=== PATIENT | male | born 1940 | race Caucasian/White ===

== ENCOUNTER 2023-11-23 10:02 | Emergency (ER) | payer OTHER, MEDICARE, SELFPAY ==
[2023-11-23 10:04] VITALS: BP 139/66
[2023-11-23 10:56] VITALS: BP 145/55
[2023-11-23 11:00] VITALS: BP 114/95
[2023-11-23 11:00] LABS: % Basophils 0.8 % (0-2); % Eosinophils 1.5 % (0-6); % Immature Granulocytes 0.6 % (0-0.5); % Monocytes 7.2 % (1.7-9.3); % Neutrophils 70.9 % (42.2-75.2); Absolute Eosinophils 0.1 10^3/uL (0-0.7); Absolute Lymphocytes 0.9 10^3/uL (1.2-3.4); Absolute Monocytes 0.3 10^3/uL (0.1-0.6); Absolute Neutrophils 3.4 10^3/uL (1.4-6.5); Hematocrit 23.1 % (39.0-52.0); Hemoglobin 7.5 g/dL (13.0-18.0); Mean Corp Hgb Conc. 32.5 g/dL (33.0-37.0); Mean Corpuscular Hgb 27.8 pg (27.0-31.0); Mean Corpuscular Volume 85.6 fL (80.0-94.0); Mean Platelet Volume 11.5 fL (7.4-10.4); Nucleated Red Blood Cells % 0 % (-); Platelet Count 143 10^3/uL (130-400); Red Cell Dist. Width 15.9 % (11.5-14.5); White Blood Cell Count 4.7 10^3/uL (4.8-10.8)
[2023-11-23 11:12] LABS: ALT (SGPT) 15 U/L (0-50); AST (SGOT) 24 U/L (17-59); Albumin 3.1 g/dl (3.5-5.0); Alkaline Phosphatase 75 U/L (38-126); Blood Urea Nitrogen 35 mg/dl (9-20); Calcium 8.1 mg/dl (8.4-10.2); Carbon Dioxide 18 mmol/L (22-30); Chloride 113 mmol/L (98-107); Glucose 109 mg/dl (70-99); Potassium 4.4 mmol/L (3.5-5.1); Sodium 137 mmol/L (135-145); Total Bilirubin 0.3 mg/dl (0.2-1.3); Total Protein 5.7 g/dl (6.3-8.2); eGFR 36.43
[2023-11-23 11:18] LABS: INR 2.35
--- NOTE | 2023-11-23 11:26 | ED.GENMED ---
History of Present Illness
<Ary Santos MD, Resident - Last Filed: 11/23/23 12:30>
General
Chief Complaint: Abnormal Lab Value
Time Seen by Provider: 11/23/23 10:50
History of Present Illness
History of Present Illness:
83-year-old male with history of hypertension, GI bleed, anemia, CKD 3B presented to the ED with dizziness and black stool. He reports that he was hospitalized at [facility] twice for similar complaint. He was discharged this past Wednesday with a
hemoglobin of 8.4. Colonoscopy and endoscopy are performed revealing large diverticula in the transverse colon. He was given 4 units of blood. He was also given erythropoietin and was seen by the small piece cutter stating that his low hemoglobin is
because of his chronic kidney disease. Patient has had 2 recent iron infusions and is currently taking Protonix 40 mg. His last rectal bleeding was yesterday. He denies any abdominal pain, any headaches, blurry vision, neck pain, chest pain,
shortness of breath, fever, chills.
Phy Exam
<Ary Santos MD, Resident - Last Filed: 11/23/23 12:30>
General Physical Exam
General Presentation: well appearing and no apparent distress
Eye Exam
Eye Exam: PERRL
Cardiovascular Exam
Cardiovascular Exam: regular rate/rhythm, no gallop and no murmur
Pulmonary Exam
Pulmonary Exam: lungs clear, no crackles and no wheezing
Gastrointestinal Exam
Gastrointestinal Exam: normal bowel sounds, non tender, soft, non distended and other (Negative stool guaiac test)
Neurological Exam
Neurological Exam: alert, oriented x3 and no motor deficits
Course
<Ary Santos MD, Resident - Last Filed: 11/23/23 12:30>
Orders/Labs/Results
Orders:
Orders
11/23/23 10:49
Type+Screen Urgent
Complete Blood Count/With Diff Urgent
Comprehensive Metabolic Panel Urgent
PTT Urgent
Prothrombin Time Urgent
Abnormal Lab Results
11/23/23
10:49
WBC 4.7 L 10^3/uL
(4.8-10.8)
RBC 2.70 L 10^6/uL
(4.70-6.10)
Hgb 7.5 L g/dL
(13.0-18.0)
Hct 23.1 L %
(39.0-52.0)
MCHC 32.5 L g/dL
(33.0-37.0)
RDW 15.9 H %
(11.5-14.5)
MPV 11.5 H fL
(7.4-10.4)
Absolute Lymphs (auto) 0.9 L 10^3/uL
(1.2-3.4)
Immature Gran % 0.6 H %
(0-0.5)
Lymphocytes % 19.0 L %
(20.5-51.1)
PT 26.0 H Sec
(11.4-14.6)
APTT 43.0 H Sec
(23.4-35.0)
Chloride 113 H mmol/L
(98-107)
Carbon Dioxide 18 L mmol/L
(22-30)
BUN 35 H mg/dl
(9-20)
Creatinine 1.8 H mg/dL
(0.7-1.3)
Glucose 109 H mg/dl
(70-99)
Calcium 8.1 L mg/dl
(8.4-10.2)
Total Protein 5.7 L g/dl
(6.3-8.2)
Albumin 3.1 L g/dl
(3.5-5.0)
11/23/23 10:49
11/23/23 10:49
Vital Signs
Initial and Last Documented VS:
Initial Vital Signs
Temp Pulse Resp BP Pulse Ox
98.5 F 87 18 139/66 99
11/23/23 10:04 11/23/23 10:04 11/23/23 10:04 11/23/23 10:04 11/23/23 10:04
Last Documented Vital Signs
Temp Pulse Resp BP Pulse Ox
98.5 F 72 17 114/95 99
11/23/23 10:04 11/23/23 11:45 11/23/23 11:45 11/23/23 11:00 11/23/23 11:15
<Bossman Lares MD - Last Filed: 11/23/23 13:17>
Orders/Labs/Results
Orders:
Orders
11/23/23 10:49
Type+Screen Urgent
Complete Blood Count/With Diff Urgent
Comprehensive Metabolic Panel Urgent
PTT Urgent
Prothrombin Time Urgent
Abnormal Lab Results
11/23/23
10:49
WBC 4.7 L 10^3/uL
(4.8-10.8)
RBC 2.70 L 10^6/uL
(4.70-6.10)
Hgb 7.5 L g/dL
(13.0-18.0)
Hct 23.1 L %
(39.0-52.0)
MCHC 32.5 L g/dL
(33.0-37.0)
RDW 15.9 H %
(11.5-14.5)
MPV 11.5 H fL
(7.4-10.4)
Absolute Lymphs (auto) 0.9 L 10^3/uL
(1.2-3.4)
Immature Gran % 0.6 H %
(0-0.5)
Lymphocytes % 19.0 L %
(20.5-51.1)
PT 26.0 H Sec
(11.4-14.6)
APTT 43.0 H Sec
(23.4-35.0)
Chloride 113 H mmol/L
(98-107)
Carbon Dioxide 18 L mmol/L
(22-30)
BUN 35 H mg/dl
(9-20)
Creatinine 1.8 H mg/dL
(0.7-1.3)
Glucose 109 H mg/dl
(70-99)
Calcium 8.1 L mg/dl
(8.4-10.2)
Total Protein 5.7 L g/dl
(6.3-8.2)
Albumin 3.1 L g/dl
(3.5-5.0)
11/23/23 10:49
11/23/23 10:49
Vital Signs
Initial and Last Documented VS:
Initial Vital Signs
Temp Pulse Resp BP Pulse Ox
98.5 F 87 18 139/66 99
11/23/23 10:04 11/23/23 10:04 11/23/23 10:04 11/23/23 10:04 11/23/23 10:04
Last Documented Vital Signs
Temp Pulse Resp BP Pulse Ox
98.5 F 72 17 114/95 99
11/23/23 10:04 11/23/23 11:45 11/23/23 11:45 11/23/23 11:00 11/23/23 11:15
<Ary Santos MD, Resident - Last Filed: 11/23/23 12:30>
*Critical Care Note
Total Time (30-74mins, 75-104mins- exclusive of procedures): Not Applicable
<Ary Santos MD, Resident - Last Filed: 11/23/23 12:30>
Update Note
Update Note:
83-year-old male presents with dizziness and melena to the ED. Recent colonoscopy revealed large diverticula in the transverse colon. The patient is currently taking 40 mg Protonix and is not feeling dizzy currently. His hemoglobin now is 7.5
which is not a significant drop from 8.4. Stool guaiac test was negative, patient is not actively bleeding, hemodynamically stable. After consulting with the industrial organizational psychologist, it was suggested that the patient can be discharged as there is no
active bleeding and his hemoglobin level has not dropped significantly with stable vitals. He should follow-up with a industrial organizational psychologist outpatient for repeat H&H. Should also follow-up with his family doctor. I will give a prescription for H&H
to be taken in like 3 days. Will refer patient to Gastroenterology also to a primary care physician for a follow up.
ED Attending Note
<Ary Santos MD, Resident - Last Filed: 11/23/23 12:30>
-
Portions of this chart may have been created with voice recognition software.� Occasional wrong word or��sound alike� substitutions may have occurred due to the inherent limitations of voice recognition software.
<Bossman Lares MD - Last Filed: 11/23/23 13:17>
ED Attending Note
Patient seen and examined by attending physician: Yes
ED Attending Note:
Patient discharged from [facility] 3 days ago after being admitted and evaluated for dark stools with anemia, requiring transfusion, returns to ED secondary to recurrent weakness and dizziness along with 'dark stool'. During
hospitalization, patient reports having received normal endoscopy and colonoscopy, along with multiple blood transfusion as well as erythropoietin treatment. Denies fever or chills. Denies nausea or vomiting. Denies abdominal pain. Denies
trauma. Denies headache.
H&H noted. Patient's hemoglobin at time of discharge was 8.4. Otherwise, patient is alert, awake, and hemodynamically stable, without any acute distress.
Reviewed patient's paperwork from [facility]. Discussed with on-call GI physician, - does not recommend blood transfusion nor any further inpatient workup at this time, as stool is heme-negative. Recommends continued
outpatient treatment along with GI follow-up as an outpatient.
Patient and family expressed understanding and agree with treatment plan. Given script for repeat H/H this week, along with recommendation to return to ED with worsening symptoms.
Discharge Plan
Departure
Patient Disposition: Home (Routine Discharge)
Date of Disposition: 11/23/23
Time of Disposition: 12:07
Patient with high blood pressure during this ER visit?: No
Discharge Problem:
Melena
Prescriptions:
New
pantoprazole 40 mg tablet,delayed release (DR/EC)
40 mg PO DAILY 90 Days Qty: 90 0RF
Referrals:
Ary Santos MD, Resident [Emergency Midlevel Provider] - Follow up in 1 week
Liam Chen MD [Active] - Follow up in 10 days
Interventions
Interventions:
*Risk Screen - Suicide Last Done: 11/23/23 10:04
*General Assessment Last Done: 11/23/23 10:04
*Neglect/Abuse Screening Last Done: 11/23/23 10:04
ED- Fall Risk Assessment Last Done: 11/23/23 12:30
*ED COVID-19 Vaccine History Last Done: 11/23/23 12:30
*Nursing Disposition Last Done: 11/23/23 12:30
Discharge Date and Time
Discharge Date/Time: 11/23/23 12:32
Print Language: SETSWANA
== END 2023-11-23 12:32 | disposition home or self-care (01) ==
LOC: EMR 10:02
PROVIDERS: EMERGENCY PHYSICIAN Emergency Medicine
DX: K92.1 Melena (principal); I12.9 Hypertensive chronic kidney disease with stage 1 through stage 4 chronic kidney disease, or unspecified chronic kidney disease; N18.32 Chronic kidney disease, stage 3b; D64.9 Anemia, unspecified
CPT/HCPCS: 99282; 80053; 85025; 85610; 85730; 86850; 86900; 86901

== ENCOUNTER 2023-12-01 16:09 | Inpatient (IN) | payer OTHER, MEDICARE, SELFPAY ==
[2023-12-01] VITALS (17 sets, daily range): BP systolic 113–178; BP diastolic 56–123; BMI 27.4; BMI 26.5
--- NOTE | 2023-12-01 09:46 | ED.GENMED ---
History of Present Illness
<Luba Ferrara QUANTITY SURVEYOR - Last Filed: 12/01/23 16:06>
General
Chief Complaint: Rectal Bleeding
Source: patient
Exam Limitations: none
Time Seen by Provider: 12/01/23 09:45
Nursing documentation reviewed up to this point in time: agreed with
History of Present Illness
History of Present Illness:
83-year-old male with history of HTN, GI bleed. Here for dark stool and reported [facility] HGB of 6.9 in out pt. labs from 2 days ago.
Pt admitted to [facility] 1 month ago for GI Bleed, received 4 U PRBC's. Discharged.
Admitted again to [facility] 2 weeks ago, received 3 units of PRBC's and Erythropoietin, seen by nephroologist and told low Hgb due to CKD. Pt reports he had endoscopy, colonoscopy and CT scan, all showing nothing to explain GI bleed. He states
swallow pill study mentioned but has not had this done.
Seen here on 11/22 for black stool and dizziness: Hgb 7.5 that day
Had out pt repeat labs 2 days ago at [facility] which he pulled up on his phone and decided to come here instead of going back to [facility]
Feels 'a little' lightheaded and short of breath. Denies CP, denies abdominal pain. Denies n/v/d/c.
Past History
<Luba Ferrara, QUANTITY SURVEYOR - Last Filed: 12/01/23 16:06>
Past History
ED Past Medical History: HTN and Other (GI bleed)
Social History
Tobacco: Non-smoker
Alcohol: None
Personal:
Living: with family
Review of Systems
<Luba Ferrara, QUANTITY SURVEYOR - Last Filed: 12/01/23 16:06>
Review of Systems
Allergies reviewed?: Yes
All Other Systems: ROS reviewed and negative except as documented in HPI and ROS
Constitutional: Reports fatigue; Denies fever
Respiratory: Reports trouble breathing (mild SOB)
Cardiac: Denies chest pain
ABD/GI: Reports other (dark stools); Denies abdominal pain, nausea, vomiting, diarrhea, constipated or anorexia
: Reports no symptoms
Musculoskeletal: Reports no symptoms
Skin: Reports no symptoms
Neurological: Reports no symptoms
Phy Exam
<Luba Ferrara, QUANTITY SURVEYOR - Last Filed: 12/01/23 16:06>
Physical Exam
Physical Exam:
GENERAL: No acute distress. A&Ox3.
CONSTITUTIONAL: Afebrile.
EYES: clear, conjunctivae normal
ENMT: moist mucus membranes, Pharynx nl
RESPIRATORY: Regular respirations, nonlabored, lungs clear.
CARDIOVASCULAR: Regular rate and rhythm, no murmurs, no rubs.
GI: Soft, nontender, normal BS
MUSCULOSKELETAL: Moves with ease. Well perfused.
SKIN: Warm, dry, pink
PSYCH: Normal mood and affect. Well kept, interactive and appropriate
NEUROLOGIC: Awake, alert and oriented. No focal neurological deficits
Course
<Luba Ferrara, QUANTITY SURVEYOR - Last Filed: 12/01/23 16:06>
Orders/Labs/Results
Orders:
Orders
12/01/23 10:15
* Blood Bank Products Urgent
Blood Bank Products: *Packed RBC Leuko(PRBC's)
Quantity: 2
Transfuse Today: Yes
Reason: Anemia
Other reason: GI bleed
IV Insert/Care/Rem.- Treatment PRN
12/01/23 10:29
Type And Crossmatch Urgent
Complete Blood Count/With Diff Urgent
Comprehensive Metabolic Panel Urgent
Ferritin Urgent
Comment: ADD ON
Folate Urgent
Comment: ADD ON
Iron Urgent
Comment: ADD ON
PTT Urgent
Prothrombin Time Urgent
Total Iron Binding Urgent
Comment: ADD ON
Vitamin B12 Urgent
Comment: ADD ON
12/01/23 13:32
Consult Gastroenterology [GASTROINTESTINAL CONSULT] Urgent
Consulting Provider: Justine Herrera
Was physician already notified: Yes
Reason for consult: GI bleed, anemia
12/01/23 13:52
Add On- LAB Routine
Tests Added?: serum iron, iron saturation, ferritin, b12, folate, tibc
12/01/23 Dinner
Low Residue
At Your Request: Full Participation
12/01/23 15:51
Admit/Transfer Patient As Directed
Co-Sign Provider:
Level of Care: Inpatient admission
Assign to:: Medical/Surgical
Physician / Group: Hospitalist
Diagnosis: Rectal bleeding
Reason for Hospitalization: Blood transfusion, GI work up.
Expected length of stay greater than two midnights?: Yes
ELOS- Estimated Length of Stay in days: 4
I certify the patient meets the requirements for IP care: Yes
12/01/23 15:52
PRN Pain Medication Management As Directed
May give lesser potent ordered pain med per pt: Yes
preference::
Protocol:: Medication orders for pain may be administered in a
manner that supports deferring to patient preference
when the pt is:
-Requesting an ordered lesser potent pain medication.
Least to most potent pain medications are defined as:
acetaminophen < NSAID < tramadol < opioids (morphine,
oxycodone, hydromorphone).
- Requesting a lesser dose of the same medication IF
ORDERED.
- Requesting a less intrusive route of administration
if both routes are prescribed by the provider (PO <
IV).
12/01/23 15:54
Code Status As Directed
Resuscitation Status: Full Code
12/01/23 16:00
0.9% Sodium Chloride [Nss (Preservative Free)] 10 ml IV BID
Pantoprazole [Protonix IV] 40 mg IV BID
12/02/23 Breakfast
Clear Liquid
At Your Request: Full Participation
Clear Liquids: No red liquids
Abnormal Lab Results
12/01/23
10:29
RBC 2.41 L 10^6/uL
(4.70-6.10)
Hgb 6.2 L* g/dL
(13.0-18.0)
Hct 20.1 L* %
(39.0-52.0)
MCH 25.7 L pg
(27.0-31.0)
MCHC 30.8 L g/dL
(33.0-37.0)
RDW 15.8 H %
(11.5-14.5)
MPV 11.0 H fL
(7.4-10.4)
Absolute Lymphs (auto) 1.0 L 10^3/uL
(1.2-3.4)
Immature Gran % 0.6 H %
(0-0.5)
Lymphocytes % 18.8 L %
(20.5-51.1)
PT 17.6 H Sec
(11.4-14.6)
Chloride 115 H mmol/L
(98-107)
Carbon Dioxide 19 L mmol/L
(22-30)
BUN 34 H mg/dl
(9-20)
Creatinine 1.6 H mg/dL
(0.7-1.3)
Glucose 111 H mg/dl
(70-99)
Calcium 8.0 L mg/dl
(8.4-10.2)
Iron 29 L ug/dl
(49-181)
% Saturation 10 L %
(20-50)
Total Protein 5.4 L g/dl
(6.3-8.2)
Albumin 2.8 L g/dl
(3.5-5.0)
Crossmatch IS Only See Detail
12/01/23 10:29
12/01/23 10:29
Vital Signs
Initial and Last Documented VS:
Initial Vital Signs
Temp Pulse Resp BP Pulse Ox
98.1 F 84 18 162/123 100
12/01/23 08:51 12/01/23 08:51 12/01/23 08:51 12/01/23 08:51 12/01/23 08:51
Last Documented Vital Signs
Temp Pulse Resp BP Pulse Ox
98.7 F 76 19 160/65 100
12/01/23 14:55 12/01/23 15:45 12/01/23 15:45 12/01/23 15:30 12/01/23 15:15
Arcgis Developer consulted with Physician
Arcgis Developer consulted with physician?: Yes
Name of Physician Consulted: Dr. Cabrera
<Dena Cabrera MD - Last Filed: 12/01/23 13:32>
Orders/Labs/Results
Orders:
Orders
12/01/23 10:15
* Blood Bank Products Urgent
Blood Bank Products: *Packed RBC Leuko(PRBC's)
Quantity: 2
Transfuse Today: Yes
Reason: Anemia
Other reason: GI bleed
IV Insert/Care/Rem.- Treatment PRN
12/01/23 10:29
Type And Crossmatch Urgent
Complete Blood Count/With Diff Urgent
Comprehensive Metabolic Panel Urgent
Ferritin Urgent
Comment: ADD ON
Folate Urgent
Comment: ADD ON
Iron Urgent
Comment: ADD ON
PTT Urgent
Prothrombin Time Urgent
Total Iron Binding Urgent
Comment: ADD ON
Vitamin B12 Urgent
Comment: ADD ON
12/01/23 13:32
Consult Gastroenterology [GASTROINTESTINAL CONSULT] Urgent
Consulting Provider: Justine Herrera
Was physician already notified: Yes
Reason for consult: GI bleed, anemia
12/01/23 13:52
Add On- LAB Routine
Tests Added?: serum iron, iron saturation, ferritin, b12, folate, tibc
12/01/23 Dinner
Low Residue
At Your Request: Full Participation
12/01/23 15:51
Admit/Transfer Patient As Directed
Co-Sign Provider:
Level of Care: Inpatient admission
Assign to:: Medical/Surgical
Physician / Group: Hospitalist
Diagnosis: Rectal bleeding
Reason for Hospitalization: Blood transfusion, GI work up.
Expected length of stay greater than two midnights?: Yes
ELOS- Estimated Length of Stay in days: 4
I certify the patient meets the requirements for IP care: Yes
12/01/23 15:52
PRN Pain Medication Management As Directed
May give lesser potent ordered pain med per pt: Yes
preference::
Protocol:: Medication orders for pain may be administered in a
manner that supports deferring to patient preference
when the pt is:
-Requesting an ordered lesser potent pain medication.
Least to most potent pain medications are defined as:
acetaminophen < NSAID < tramadol < opioids (morphine,
oxycodone, hydromorphone).
- Requesting a lesser dose of the same medication IF
ORDERED.
- Requesting a less intrusive route of administration
if both routes are prescribed by the provider (PO <
IV).
12/01/23 15:54
Code Status As Directed
Resuscitation Status: Full Code
12/01/23 16:00
0.9% Sodium Chloride [Nss (Preservative Free)] 10 ml IV BID
Pantoprazole [Protonix IV] 40 mg IV BID
12/02/23 Breakfast
Clear Liquid
At Your Request: Full Participation
Clear Liquids: No red liquids
Abnormal Lab Results
12/01/23
10:29
RBC 2.41 L 10^6/uL
(4.70-6.10)
Hgb 6.2 L* g/dL
(13.0-18.0)
Hct 20.1 L* %
(39.0-52.0)
MCH 25.7 L pg
(27.0-31.0)
MCHC 30.8 L g/dL
(33.0-37.0)
RDW 15.8 H %
(11.5-14.5)
MPV 11.0 H fL
(7.4-10.4)
Absolute Lymphs (auto) 1.0 L 10^3/uL
(1.2-3.4)
Immature Gran % 0.6 H %
(0-0.5)
Lymphocytes % 18.8 L %
(20.5-51.1)
PT 17.6 H Sec
(11.4-14.6)
Chloride 115 H mmol/L
(98-107)
Carbon Dioxide 19 L mmol/L
(22-30)
BUN 34 H mg/dl
(9-20)
Creatinine 1.6 H mg/dL
(0.7-1.3)
Glucose 111 H mg/dl
(70-99)
Calcium 8.0 L mg/dl
(8.4-10.2)
Iron 29 L ug/dl
(49-181)
% Saturation 10 L %
(20-50)
Total Protein 5.4 L g/dl
(6.3-8.2)
Albumin 2.8 L g/dl
(3.5-5.0)
Crossmatch IS Only See Detail
12/01/23 10:29
12/01/23 10:29
Vital Signs
Initial and Last Documented VS:
Initial Vital Signs
Temp Pulse Resp BP Pulse Ox
98.1 F 84 18 162/123 100
12/01/23 08:51 12/01/23 08:51 12/01/23 08:51 12/01/23 08:51 12/01/23 08:51
Last Documented Vital Signs
Temp Pulse Resp BP Pulse Ox
98.7 F 76 19 160/65 100
12/01/23 14:55 12/01/23 15:45 12/01/23 15:45 12/01/23 15:30 12/01/23 15:15
<Luba Ferrara, QUANTITY SURVEYOR - Last Filed: 12/01/23 16:06>
MDM/Problems Addressed
Differential Diagnosis Includes:
Acute GI bleed, iron deficient anemia, CKD with anemia
MDM/Problems Addressed:
83-year-old male with history of HTN, GI bleed. Here for dark stool and reported [facility] HGB of 6.9 in out pt. labs from 2 days ago.
Pt admitted to [facility] 1 month ago for GI Bleed, received 4 U PRBC's. Discharged.
Admitted again to [facility] 2 weeks ago, received 3 units of PRBC's and Erythropoietin, seen by nephroologist and told low Hgb due to CKD. Pt reports he had endoscopy, colonoscopy and CT scan, all showing nothing to explain GI bleed. He states
swallow pill study mentioned but has not had this done.
Seen here on 11/22 for black stool and dizziness: Hgb 7.5 that day, but stool reportedly heme neg. At that time we spoke to GI and plan was to f/u as out pt. and have Hgb rechecked
Had out pt repeat labs 2 days ago at [facility] which he pulled up on his phone and decided to come here instead of going back to [facility]
Feels 'a little' lightheaded and short of breath. Denies CP, denies abdominal pain. Denies n/v/d/c.
Stool now heme positive.
VSS, NAD
Blood consent signed and scanned into chart
CBC: Hemoglobin 6.2
CMP: noted
Case discussed with Dr. Cabrera who examined pt.
1:[address] GI [address]. Herrera
[facility] obtained and colonoscopy, endoscopy, CT results reviewed by Dr. Herrera who states technically not a complete colonoscopy so ask pt if he's willing to have it repeated, he states yes.
Hospitalist notified of admission.
<Luba Ferrara NP - Last Filed: 12/01/23 16:06>
*Critical Care Note
Total Time (30-74mins, 75-104mins- exclusive of procedures): Not Applicable
ED Attending Note
<Luba Ferrara NP - Last Filed: 12/01/23 16:06>
-
Portions of this chart may have been created with voice recognition software.� Occasional wrong word or��sound alike� substitutions may have occurred due to the inherent limitations of voice recognition software.
<Dena Cabrera MD - Last Filed: 12/01/23 13:32>
ED Attending Note
Patient seen and examined by attending physician: Yes
I performed the substantive portion of visit, reviewed & personally made and approve the management plan that is documented in note by myself or ANDRES.: Yes
ED Attending Note:
83 yr old male hx of black heme + stool and anemia, w/u reportedly unremkarable recently at [facility],presents with worsening anemia assoc with dizziness/lightheadedness and mild sob. No cp. No f/c/v/d.
Pt awake alert pleasant on exam,abd osft and nontender. Reports from obtained, QUANTITY SURVEYOR d/w [facility]...plan is transfuse, admit for further monitoring and I suspect further investigation. Pt stable.
Discharge Plan
Departure
Patient Disposition: Admit
Date of Disposition: 12/01/23
Time of Disposition: 13:28
Admit to: Med/Surg
Presentation/result/management discussed w/ accepting MD/DO: Hospitalist
Condition: Fair
Discharge Problem:
GI bleed, Anemia
Prescriptions:
No Action
amlodipine [Norvasc] 2.5 mg Tablet
2.5 mg PO DAILY
PreserVision AREDS 2,148 mcg-113 mg-45 mg-17.4mg Tablet
1 tab PO BID
pantoprazole 40 mg tablet,delayed release (DR/EC)
40 mg PO DAILY
Referrals:
Curly Cornelius DO [Family Provider] -
Interventions
Interventions:
*Risk Screen - Suicide Last Done: 12/01/23 08:51
*General Assessment Last Done: 12/01/23 08:51
*Neglect/Abuse Screening Last Done: 12/01/23 08:51
*ED COVID-19 Vaccine History Last Done: 12/01/23 08:51
UQ-Uywalj-Qmrkkyrcrs Assessment Last Done: 12/01/23 10:34
ED- Cardiac Assessment Last Done: 12/01/23 10:34
ED- Pulmonary Assessment Last Done: 12/01/23 10:34
Discharge Date and Time
Print Language: KOSOVAN
[2023-12-01 10:52] LABS: ALT (SGPT) 16 U/L (0-50); APTT 34.5 Sec (23.4-35.0); AST (SGOT) 23 U/L (17-59); Albumin 2.8 g/dl (3.5-5.0); Alkaline Phosphatase 67 U/L (38-126); Blood Urea Nitrogen 34 mg/dl (9-20); Carbon Dioxide 19 mmol/L (22-30); Chloride 115 mmol/L (98-107); Estimated Creatinine Clearance 35 ml/min; Glucose 111 mg/dl (70-99); INR 1.43; PT 17.6 Sec (11.4-14.6); Potassium 4.7 mmol/L (3.5-5.1); Sodium 140 mmol/L (135-145); Total Bilirubin 0.2 mg/dl (0.2-1.3); Total Protein 5.4 g/dl (6.3-8.2); eGFR 41.96
[2023-12-01 11:00] LABS: % Basophils 0.4 % (0-2); % Eosinophils 0.8 % (0-6); % Immature Granulocytes 0.6 % (0-0.5); % Lymphocytes 18.8 % (20.5-51.1); % Monocytes 4.4 % (1.7-9.3); Absolute Monocytes 0.2 10^3/uL (0.1-0.6); Absolute Neutrophils 3.8 10^3/uL (1.4-6.5); Hematocrit 20.1 % (39.0-52.0); Hemoglobin 6.2 g/dL (13.0-18.0); Mean Corp Hgb Conc. 30.8 g/dL (33.0-37.0); Mean Corpuscular Hgb 25.7 pg (27.0-31.0); Mean Corpuscular Volume 83.4 fL (80.0-94.0); Nucleated Red Blood Cells % 0 % (-); Platelet Count 189 10^3/uL (130-400); Red Blood Cell Count 2.41 10^6/uL (4.70-6.10); Red Cell Dist. Width 15.8 % (11.5-14.5)
--- NOTE | 2023-12-01 13:34 | CON.GI ---
Addendum entered and electronically signed by Justine Herrera DO 12/01/23 16:51:
I saw and examined the patient.
The CLIENT ENGAGEMENT SPECIALIST or PA's note was reviewed and I agree with the note.
Comment:
Jose J is an 83-year-old male with past medical history significant for gastric bypass with duodenal switch in 2009, iron deficiency anemia, chronic kidney disease who presents to the ER with complaints of melena. Of note patient underwent a
recent workupto at [facility] for anemia and GI bleeding, EGD with small hiatal hernia, mild esophagitis and gastritis but otherwise unremarkable. Colonoscopy with decreased finger tone on rectal exam, blood products and some solid stool found
throughout the colon limiting visualization, evidence of diverticulosis in the transverse colon, additionally, due to tortuous colon, unable to advance scope past transverse colon. Recommendations were made to consider repeat colonoscopy or attempt
with single balloon.
Hgb 6.2 on arrival, with 2 units of PRBC ordered. Brown, heme positive stool on rectal exam. He is hemodynamically stable-- hypertensive on exam.
Recommendations:
-2 peripheral gauge IVs
-active T&C
-receiving 2 units PRBC
-plan for colonoscopy on Wednesday
-clear liquids tomorrow and prep-- patient agreeable to plan
-if patient experiences brisk GI bleeding, please obtain stat CTA or bleeding scan
Original Note:
Consultation
-
Date/Time Consultation Requested: 12/01/23
Date/Time Consultation Performed: 12/01/23 @ 14:00
Requesting Provider: Luba Ferrara
Performing Provider: NNAMDI Barrett; Dr. Justine Herrera
Reason for Consultation: anemia, heme + stool
Medical History
Chief Complaint / HPI
Chief Complaint: melena
History of Present Illness:
The patient is a pleasant 83-year-old male with a past medical history significant for hypertension, gastric bypass with duodenal switch in 2009, anemia, chronic kidney disease, who presented to the ER with complaints of melena, which we are being
asked to evaluate for. The patient reports he started having black stools about 1 and half months ago. He was admitted to [facility] where he received blood transfusions. He notes after that point in time he was discharged but then
returned 2 weeks ago again with recurrent anemia. He reports having a CT scan which was unrevealing. I did read the report which did not show any active signs of bleeding, but did show a right adrenal lesion that recommended follow-up with MRI and
findings consistent with prior gastric bypass. He notes that he did have an EGD and colonoscopy done at that time but no source of bleeding was identified. He notes that they had difficulty performing his colonoscopy and it was advised he have a
repeat colonoscopy and possible capsule study outpatient. He had been evaluated in the emergency room last week on 11/22 and was found to have a hemoglobin of 7.5 at that time. Upon rectal exam he was heme-negative and him and advised to follow-up
with GI outpatient. The patient reports that for the past 1-1/2 weeks he noticed that his stool had been more brown in color. He has been taking iron supplementation as previously directed. He also has been taking pantoprazole once daily as
directed. He denies any upper GI complaints such as nausea, vomiting, heartburn, dysphagia, or odynophagia. He denies any abdominal pain. He has no unintentional weight loss or loss of appetite. He denies any cramping with bowel movements. He
is moving his bowels 1-2 times daily, although notes they can be looser at times. He otherwise denies any fevers, chills, chest pain, shortness of breath, lightheadedness, dizziness, or syncope. He denies any prior history of anemia. He reports
having colonoscopies done every 2 years up until 83 as his had colon cancer and was required to get them done every 2 years therefore they would get them done together. He denies any bright red blood per rectum. He denies any tarry stool or
clots. He denies ever having colon polyps in the past. He had been on 81 mg of aspirin but had stopped this after being hospitalized at [facility]. He denies any family history of colon cancer. Routine labs on admission showed a hemoglobin of
6.2, hematocrit 20.1, RBC 2.4, WBC 5.0, platelets 189,000, MCV 83.4, INR 1.43, BUN 34, creatinine 1.6, with normal LFTs. Iron studies, B12, and folate pending. 2 units of blood were ordered and transfusion was started. He is hemodynamically
stable, actually with hypertension otherwise asymptomatic in regards to his anemia. Stool was heme positive on rectal exam per ER records. He is being admitted for further evaluation by GI.
Past Medical History
Past Medical History: HTN and Other (CKD)
Past Surgical History: Orthopedic (left arm surgery) and Other (Gastric bypass w/ duodenal switch)
Social History
Tobacco: Former Smoker (quit 40 years ago)
Alcohol: Occasional
Drug: None
Personal:
Family History
Family History: Reviewed & Not Pertinent
Allergies / Home Medications
Allergy/AdvReac Type Severity Reaction Status Date / Time
No Known Allergies Allergy Verified 12/01/23 08:51
�Medication �Instructions �Recorded
pantoprazole 40 mg tablet,delayed 40 mg PO DAILY 90 days #90 tabs 11/23/23
release
amlodipine 2.5 mg tablet (Norvasc) 2.5 mg PO DAILY 12/01/23
vitamins A,C,T-zmvq-djwzue 2,148 1 tab PO BID 12/01/23
mcg-113 mg-45 mg-17.4 mg tablet
(PreserVision AREDS)
Review of Systems
-
History Source: Patient
Constitutional: Reports No Symptoms
EENT: Reports No Symptoms
Respiratory: Reports No Symptoms
Cardiac: Reports No Symptoms
Abdomen/GI: Reports Black Stools
: Reports No Symptoms
Musculoskeletal: Reports No Symptoms
Skin: Reports No Symptoms
Neurological: Reports No Symptoms
Endocrine: Reports No Symptoms
Hematologic/Lymphatic: Reports No Symptoms
Vital Signs
Temp Pulse Resp BP Pulse Ox
98.4 F 98 22 192/113 100
12/01/23 12:18 12/01/23 12:24 12/01/23 12:24 12/01/23 12:24 12/01/23 12:24
Physical Exam
Exam
General: Comfortable and Other (elderly appearing male in NAD)
HEENT: Normocephalic, Anicteric and Atraumatic
Respiratory: Clear
Cardiac: S1/S2 and Regular Rhythm
Breast: N/A
GI: Soft, Non Tender, Non Distended, Normal Bowel Sounds and Other (+midline abdominal hernia, easily reducible and nontender)
Rectal: Hem Positive (per ER documentation)
Musculoskeletal: No Edema
Skin: Warm and Dry
Neuro: Awake, Alert and Oriented
Psych: Calm
Results
WBC 5.0 10^3/uL (4.8-10.8) 12/01/23 10:29
Hgb 6.2 g/dL (13.0-18.0) L* 12/01/23 10:29
Hct 20.1 % (39.0-52.0) L* 12/01/23 10:29
MCV 83.4 fL (80.0-94.0) 12/01/23 10:29
Plt Count 189 10^3/uL (130-400) 12/01/23 10:29
Absolute Neuts (auto) 3.8 10^3/uL (1.4-6.5) 12/01/23 10:29
PT 17.6 Sec (11.4-14.6) H 12/01/23 10:29
INR 1.43 12/01/23 10:29
APTT 34.5 Sec (23.4-35.0) 12/01/23 10:29
Sodium 140 mmol/L (135-145) 12/01/23 10:29
Potassium 4.7 mmol/L (3.5-5.1) 12/01/23 10:29
Chloride 115 mmol/L (98-107) H 12/01/23 10:29
Carbon Dioxide 19 mmol/L (22-30) L 12/01/23 10:29
BUN 34 mg/dl (9-20) H 12/01/23 10:29
Creatinine 1.6 mg/dL (0.7-1.3) H 12/01/23 10:29
Calcium 8.0 mg/dl (8.4-10.2) L 12/01/23 10:29
Total Bilirubin 0.2 mg/dl (0.2-1.3) 12/01/23 10:
AST 23 U/L (17-59) 12/01/23 10:
ALT 16 U/L (0-50) 12/01/23 10:
Alkaline Phosphatase 67 U/L (38-126) 12/01/23 10:29
Diagnostic Image Results:
11/18/23 CT A/P w/ IV and oral contrast: No acute findings in the abdomen or pelvis. A right adrenal lesion measuring 2.5 x 3 cm was seen. Prostatomegaly. Gallbladder sludge.
Prior GI Procedures:
EGD: 11/15/2023 ([facility]): Small hiatal hernia, mild esophagitis and gastritis. Stomach biopsies showing minimal chronic inflammation, negative for H. pylori
Colonoscopy: 11/16/2023 ([facility]): Decreased sphincter tone on rectal exam. Upon entry blood products and some solid stool found throughout the colon along with clots limiting visualization. The colon was dilated upon entry. Trouble
advancing due to tortuosity despite counterpressure with pediatric scope. Switch to adult scope but only able to reach likely the proximal transverse colon. Diverticulosis with large mouth diverticula in the transverse colon. No active bleeding
seen.
Assessment / Plan
-
The patient is a pleasant 83-year-old male with a past medical history significant for hypertension, gastric bypass with duodenal switch in 2009, anemia, chronic kidney disease, who presented to the ER with complaints of melena, found to have
recurrent severe anemia with a hemoglobin of 6.2. He had prior extensive workup at [facility] including CT scan, EGD, and colonoscopy. There were no definite sources of bleeding although on colonoscopy there was evidence of blood and clot but
the procedure was unable to be completed given the tortuosity of the colon and difficulty advancing to the cecum (per [facility] records). He had been having brown stool for the past week and a half then with recurrent melena as of this morning.
He denies any other symptoms. He had been on pantoprazole as directed taking this daily. He denies any NSAID use or use of blood thinners as he had stopped 81 mg of aspirin at his prior hospitalization. He has no prior history of GI bleed. He is
having 1-2 bowel movements a day with no gross bleeding. He denies any bright red blood per rectum. He is hypertensive but otherwise hemodynamically stable. 2 units of PRBC infusing.
Problem list:
-Melena
-Severe normocytic anemia
-Likely CKD
-History of duodenal switch in 2009
-Hypertensive urgency
-Mild acidosis
Recommendations:
-Etiology of recurrent anemia unclear, but suspected to be possible small bowel versus upper large bowel source (AVM v diverticular v other) based on prior workup. Possibly also component of chronic kidney disease contributing to some degree of his
anemia although with melena will need to rule out GI source.
-Will start with repeat colonoscopy given incomplete scope at [facility] which the patient is agreeable to. Plan for colonoscopy on Wednesday. Will discuss with Dr. Amaya given the difficulty of his prior colonoscopy.
-Continue to trend H&H and transfuse to keep hemoglobin greater than 7
-Monitor for profuse bleeding, if significant episode of bleeding to consider bleeding scan (limited on CT given his renal function)
-Large-bore IV
-Okay for low residue diet today, then clear liquid diet after midnight with prep the evening of 12/01 and plan for scope 12/02
-To consider capsule study outpatient pending colonoscopy. The patient also has a granddaughter who works at [employer] in the GI department if he will need a DBE he will be in contact with his granddaughter to talk to someone at [employer].
-Continue on IV PPI, will increase to twice daily for now with melena
-Further management pending above
-
-
Thank you for consultation and allowing me to participate in the patient's care. Please call the radiation monitor GI physician during the after hours with any questions or concerns.
[2023-12-01 15:33] LABS: Iron 29 ug/dl (49-181)
[2023-12-01 15:43] LABS: Percent Saturation 10 % (20-50); Total Iron Binding Capacity 266 ug/dl (261-462)
--- NOTE | 2023-12-01 16:04 | HPS.HSE ---
Addendum entered and electronically signed by Lillian Peres MD 12/01/23 17:56:
I personally performed a history and physical exam of the patient and discussed management with the resident. I reviewed the resident's note and agree with the documented findings and plan of care HPI/CC.
GENERAL: well developed, well nourished,male in no apparent distress
HEENT: NC/AT--no O2 requirements
HEART: regular rate and rhythm, +S1, +S2
LUNGS : clear to auscultation bilaterally
ABDOM: soft, nontender, nondistended, + bowel sounds, abdominal wall hernia
EXT: no cyanosis, clubbing, or edema
NEUROLOGIC: grossly intact
Rectal bleeding--with black stool and painless, could be upper GI source (PUD, DUD) vs lower (diverticulosis, AVMs--although they could present more melanotic rather than black)--pt has had prior admissions at an outside hospital x 2 for same and
both times received pRBC transfusions--EGD/colonoscopy done were inconclusive based on the reports reviewed)--ADMIT--transfuse pRBC and consult GI--serial H&H� Large-bore IV--if significant bleeding happens, consider nuclear med bleeding scan--CT
angiography would be risky due to creat of 1.6--would recommend repeat EGD and colonoscopy and if truly neg then outpt capsule study next step--Continue IV PPI BID
Acute to subacute blood loss anemia--pt hgb 6.2 (likely chronic in nature with presumed CKD, stage 3?), compensated to some extent--iron studies show SHELBIE, pt took oral iron as outpt for 1 week then stopped--B12 and folate are adequate--after workup,
consider restarting oral iron therapy
Unknown cardiac issue--Patient states sees a cheese packer Dr. Johnson Maria every 6 months for an unknown cardiac issue--Plans to contact Dr. Maria by Dr. Limon to see what his underlying issue is--Patient stated a carotid ultrasound and an
unspecified scan of his heart was done at [facility] and stated they both came back normal.
Elevated creatinine--likely CKD stage 3--but no true baseline labs-1.6 on admission. 1.8 on 11/22--Avoid nephrotoxic drugs
Essential HTN--Continue amlodipine 2.5 mg
Adrenal Lesion--Abdominal/pelvic enhanced done at [facility] on November 17 noted 2.5 x 3 cm right adrenal lesion which does not meet CT criteria for simple adenoma--Follow up as outpatient
DVT proph--Sequential compression device
Code status--Full code
Original Note:
Family Physician
-
Family Physician: Curly Cornelius
Chief Complaint
-
Rectal bleeding
History of Present Illness
83-year-old male presents to the ED with rectal bleeding. About a month and a half ago patient was admitted to [facility] for rectal bleeding. Patient saw black stools and went into the ER. He did not have any abdominal pain, nausea,
vomiting, fever, diarrhea, or recent constipation. They gave him 4 units of blood and sent him home. 2 weeks later he went back to [facility] for rectal bleeding again. They gave him 2 units of blood and admitted him for further
workup. They did an endoscopy, colonoscopy and abdominal CT all of which came back inconclusive for cause of GI bleed. Colonoscopy was not prepped properly and report noted that on entry blood products and some solid stool found throughout the
colon along with clots limiting visualization. They were also unable to reach proximal transverse colon. They gave him 1 dose of erythropoietin while there. 1 week ago patient came into [place] ER for black stools. ED did a Hemoccult blood
test which came back negative and sent him home with recommendations to follow-up with GI outpatient. On Wednesday patient got his routine lab work from PCP back and his hemoglobin level was 6.9. After seeing the value he felt dizzy. Today he again
had black stools and came to the ED. On admission patient had hemoglobin levels of 6.2. 2 units of packed red blood cells were given. Patient has no complaints besides black stools. He has no diarrhea, constipation, bright red blood in the
stool, abdominal tenderness, abdominal pain, nausea, vomiting or fever. He does take an iron supplement. He did take baby aspirin 81 mg but has stopped after hospitalization at [facility]. He does not take any NSAIDs. He had bariatric surgery
14 years ago. Patient is being admitted for blood transfusions and further GI workup.
Medical History
Past Medical History
Past Medical History: Reports HTN
Additional Past Medical History:
Unknown cardiac issue
Past Surgical History: Reports Other (Bariatric surgery, metal andie placement for broken left upper arm)
Social History
Tobacco: Former Smoker (1 pack per day from ages [age])
Alcohol: Occasional
Drug: None
Personal:
Living: With Family
Employment: Employed
Family History
Family History: Other (Father at age 36 of unknown metastatic cancer, mother of unknown kidney disease)
Allergies / Home Medications
Allergies reflects when Allergies were last updated in [facility].
Home Medications with original date entered in [facility]
Allergy/Medication List:
Allergies
Allergy/AdvReac Type Severity Reaction Status Date / Time
No Known Allergies Allergy Verified 12/01/23 08:51
Home Medications
amlodipine 2.5 mg tablet (Norvasc) 2.5 mg PO DAILY Blood Pressure 12/01/23
pantoprazole 40 mg tablet,delayed release 40 mg PO DAILY Gastrointestinal Issue 12/01/23
vitamins A,C,R-goib-ofokkh 2,148 mcg-113 mg-45 mg-17.4 mg tablet (PreserVision AREDS) 1 tab PO BID Supplement 12/01/23
Review of Systems
-
History Source: Patient
EENT: Reports No Symptoms
Respiratory: Reports No Symptoms
Cardiac: Reports No Symptoms
Abdomen/GI: Reports Black Stools; Denies Abdominal Pain, Nausea, Vomiting, Diarrhea or Constipated
: Reports No Symptoms
Musculoskeletal: Reports No Symptoms
Skin: Reports No Symptoms
Neurological: Reports No Symptoms
Psych: Reports No Symptoms
Physical Exam
Vital Signs
Vital Signs
Temp Pulse Resp BP Pulse Ox
98.7 F 76 19 160/65 100
12/01/23 14:55 12/01/23 15:45 12/01/23 15:45 12/01/23 15:30 12/01/23 15:15
Physical Exam
General: Well Developed, Well Nourished, No Apparent Distress and Comfortable
HEENT: NormoCephalic
Respiratory: Clear
Cardiac: S1/S2 and Regular Rhythm
GI: Soft, Non Tender, Non Distended, Normal Bowel Sounds and Other (abdominal hernia); No No Hernias
Musculoskeletal: No Edema
Neuro: AO x 3
Laboratory Results
-
12/01/23 10:29
12/01/23 10:29
Laboratory Results
PT 17.6 Sec (11.4-14.6) H 12/01/23 10:29
INR 1.43 12/01/23 10:29
APTT 34.5 Sec (23.4-35.0) 12/01/23 10:29
Total Bilirubin 0.2 mg/dl (0.2-1.3) 12/01/23 10:29
AST 23 U/L (17-59) 12/01/23 10:29
ALT 16 U/L (0-50) 12/01/23 10:29
Alkaline Phosphatase 67 U/L (38-126) 12/01/23 10:29
Impression/Plan
-
IMPRESSION:
83-year-old male with history of hypertension presenting to ED with rectal bleeding.
PLAN:
#Rectal bleeding
-Prior admission to [facility] for rectal bleeding.
-Black stools, hemoglobin 6.2 on admission.
-GI consulted
-Continue to trend H&H and transfuse to keep hemoglobin greater than 7
� Large-bore IV
� Monitor for profuse bleeding, if significant episode of bleeding consider bleeding scan (limited on CT given his renal function)
-Colonoscopy planned for 8�2 as colonoscopy at [facility] was not done properly
-Low residue diet today, then clear liquid diet after midnight with prep the evening of 8�1 and plan for scope 8�2
�Consider capsule study outpatient pending colonoscopy. Patient has a granddaughter who works at [employer] in the GI department and be willing to help him get seen postprocedure.
-Continue IV PPI
#Acute to subacute blood loss anemia
-Hemoglobin 6.2 on admission. MCV 83.4. Likely secondary to rectal bleeding.
�Iron 29 L, TIBC 266, percent saturation 10, ferritin 10.6 L. Vitamin B-12 greater than 1000, folate 12.4
-Patient on iron supplementation
-Monitor H&H
#Unknown cardiac issue
-Patient states sees a cheese packer Dr. Johnson Maria every 6 months for an unknown cardiac issue.
-Plans to contact Dr. Maria to see what his underlying issue is
-Patient stated a carotid ultrasound and an unspecified scan of his heart was done at [facility] and stated they both came back normal.
-Patient's METS score greater than 4, ambulatory and appears to be in good health.
-Denies any chest pain, shortness of breath, palpitations.
#Elevated creatinine
-1.6 on admission. 1.8 on 11/22.
-No prior baseline to compare
-Monitor creatinine
-Avoid nephrotoxic drugs
#Essential HTN
-Continue amlodipine 2.5 mg
#Adrenal Lesion
-Abdominal/pelvic enhanced done at [facility] on November 17 noted 2.5 x 3 cm right adrenal lesion which does not meet CT criteria for simple adenoma.
-Follow up in outpatient
#DVT
-Sequential compression device
#Code status
-Full code
[2023-12-01 16:08] LABS: Ferritin 10.6 ng/ml (17.9-464.0)
[2023-12-01 16:40] LABS: Folate 12.4 ng/ml (2.76-20); Vitamin B12 > 1000 pg/ml (239-931)
[2023-12-01] MEDS: NSS (PRESERVATIVE FREE) 10 ML IV ×2 (18:08→21:37)
[2023-12-01] MEDS: PROTONIX IV 40 MG IV ×2 (18:08→21:38)
[2023-12-01] MEDS: OCUVITE SOFTGEL 1 CAP PO (19:37)
[2023-12-01 21:24] LABS: Hematocrit 23.3 % (39.0-52.0); Hemoglobin 7.8 g/dL (13.0-18.0)
--- NOTE | 2023-12-01 22:37 | PTCARENOTE ---
Rec'd pt from ED, 2nd unit of blood completed. Pt call [facility] placed within reach, pt instructed to ring for assistance. verbalized understanding. will cont to monitor.
--- NOTE | 2023-12-02 06:26 | W.PN.HOSP.TC ---
Addendum entered and electronically signed by Lillian Peres MD 12/02/23 20:08:
I saw and evaluated the patient independently. I reviewed the resident�s note and agree with findings and plan as documented by Dr. Limon.
GENERAL: well developed, well nourished,male in no apparent distress
HEENT: NC/AT--no O2 requirements
HEART: regular rate and rhythm, +S1, +S2
LUNGS : clear to auscultation bilaterally
ABDOM: soft, nontender, nondistended, + bowel sounds, abdominal wall hernia
EXT: no cyanosis, clubbing, or edema
NEUROLOGIC: grossly intact
Rectal bleeding--with black stool and painless, could be upper GI source (PUD, DUD) vs lower (diverticulosis, AVMs--although they could present more melanotic rather than black), concern for possible right sided malignancy--pt has had prior
admissions at an outside hospital x 2 for same and both times received pRBC transfusions--EGD/colonoscopy done were inconclusive based on the reports reviewed)---s/p 2 units pRBC with improvement to 9.3 and apprec GI--serial H&H� 2 Large-bore
IV--if significant bleeding happens, consider nuclear med bleeding scan--CT angiography would be risky due to creat of 1.6-- EGD and colonoscopy for Wednesday and if truly neg then outpt capsule study next step--Continue IV PPI BID
Acute to subacute blood loss anemia--pt hgb 6.2 (likely chronic in nature with presumed CKD, stage 3?), compensated to some extent--iron studies show SHELBIE, pt took oral iron as outpt for 1 week then stopped--B12 and folate are adequate--after workup,
consider restarting oral iron therapy--s/p 2 units pRBC with HGB 9.3
Unknown cardiac issue--Patient states sees a office administration instructor Dr. Johnson Maria every 6 months for an unknown cardiac issue--Plans to contact Dr. Maria by Dr. Limon to see what his underlying issue is--Patient stated a carotid ultrasound and an
unspecified scan of his heart was done at [facility] and stated they both came back normal.
Elevated creatinine--likely CKD stage 3--but no true baseline labs-1.6 on admission, 1.4 today-- 1.8 on 11/22--Avoid nephrotoxic drugs
Essential HTN--Continue amlodipine 2.5 mg
Adrenal Lesion--Abdominal/pelvic enhanced done at [facility] on November 17 noted 2.5 x 3 cm right adrenal lesion which does not meet CT criteria for simple adenoma--Follow up as outpatient
DVT proph--Sequential compression device
Code status--Full code
Original Note:
Today's Communication/Plan
-
Patient started on GI protocol for colonoscopy. Colonoscopy planned tomorrow.
Assessment / Plan
Assessment / Plan
PLAN:
#Rectal bleeding
-Prior admission to [facility] for rectal bleeding.
-Black stools, hemoglobin 6.2 on admission. After 2 units 11/30 went up to 7.8. Today its 9.3.
-GI consulted
-Continue to trend H&H and transfuse to keep hemoglobin greater than 7
� Large-bore IV
� Monitor for profuse bleeding, if significant episode of bleeding consider bleeding scan (limited on CT given his renal function)
-Colonoscopy planned for 8�2 as colonoscopy at [facility] was not done properly
-Low residue diet today, then clear liquid diet after midnight with prep the evening of 8�1 and plan for scope 8�2
�Consider capsule study outpatient pending colonoscopy. Patient has a granddaughter who works at [employer] in the GI department and be willing to help him get seen postprocedure.
-Continue IV PPI
-GI is prepping patient for colonoscopy tomorrow.
#Acute to subacute blood loss anemia
-Hemoglobin 6.2 on admission. MCV 83.4. Likely secondary to rectal bleeding.
-7.8 after 2 units PRBC. Today 9.3.
�Iron 29 L, TIBC 266, percent saturation 10, ferritin 10.6 L. Vitamin B-12 greater than 1000, folate 12.4
-Patient on iron supplementation
-Monitor H&H
#Unknown cardiac issue
-Patient states sees a office administration instructor Dr. Johnson Maria every 6 months for an unknown cardiac issue.
-Patient stated a carotid ultrasound and an unspecified scan of his heart was done at [facility] and stated they both came back normal.
-Denies any chest pain, shortness of breath, palpitations.
-EKG shows sinus rhythm with sinus arrhythmia with 1st degree AV block with premature ventricular complexes.
-Pt plans to continue to see office administration instructor.
#Elevated creatinine
-1.6 on admission. 1.8 on 11/22.
-12/01 cr 1.4.
-No prior baseline to compare
-Monitor creatinine
-Avoid nephrotoxic drugs
#Essential HTN
-Continue amlodipine 2.5 mg
#Adrenal Lesion
-Abdominal/pelvic enhanced done at [facility] on November 17 noted 2.5 x 3 cm right adrenal lesion which does not meet CT criteria for simple adenoma.
-Follow up in outpatient
#DVT
-Sequential compression device
#Code status
-Full code
Anticipated Discharge: > 48 hours
Subjective/Interval History
-
Date of Service: December 02, 2023
Patient appears well and is in no acute distress. Talkative and friendly.
Objective Data
-
Labs:
Laboratory Results
12/01/23 12/02/23
21:14 06:00
WBC Pending
Hgb 7.8 L D Pending
Hct 23.3 L Pending
Plt Count Pending
PT Pending
INR Pending
APTT Pending
Sodium Pending
Potassium Pending
Chloride Pending
Carbon Dioxide Pending
BUN Pending
Creatinine Pending
Glucose Pending
Calcium Pending
Total Bilirubin Pending
AST Pending
ALT Pending
Alkaline Phosphatase Pending
Vital Signs:
Vital Signs
Temp Pulse Resp BP Pulse Ox
97.4 F 67 18 149/70 98
12/01/23 23:00 12/01/23 23:00 12/01/23 23:00 12/01/23 23:00 12/02/23 00:40
I&O
11/30/23 12/01/23 12/02/23
06:59 06:59 06:59
Intake Total 610 / 610
Balance 610 / 610
Review of Systems
-
History Source: Patient
EENT: Reports No Symptoms Reported
Respiratory: Reports No Symptoms
Cardiac: Reports No Symptoms
Abdomen/GI: Denies Abdominal Pain, Nausea, Vomiting, Diarrhea, Constipated or Pain
Genitourinary: Reports No Symptoms
Neuro: Reports No Symptoms
Physical Exam
-
General: Well Developed and Well Nourished
HEENT: Normocephalic
Respiratory: Clear to Auscultation; Negative Wheezes or Rales
Cardiac: Regular Rhythm and S1/S2
GI: Soft, Nontender, Nondistended and Other (abdominal hernia)
Neuro: AO x 3
Psych: Calm
[2023-12-02 07:35] VITALS: BP 134/73
[2023-12-02 08:14] LABS: INR 1.79; PT 20.9 Sec (11.4-14.6)
[2023-12-02 08:15] LABS: APTT 54.1 Sec (23.4-35.0)
[2023-12-02 08:34] LABS: ALT (SGPT) 18 U/L (0-50); AST (SGOT) 28 U/L (17-59); Albumin 2.9 g/dl (3.5-5.0); Alkaline Phosphatase 68 U/L (38-126); Blood Urea Nitrogen 26 mg/dl (9-20); Calcium 8.2 mg/dl (8.4-10.2); Carbon Dioxide 16 mmol/L (22-30); Chloride 117 mmol/L (98-107); Estimated Creatinine Clearance 40 ml/min; Glucose 120 mg/dl (70-99); Potassium 4.6 mmol/L (3.5-5.1); Sodium 140 mmol/L (135-145); Total Bilirubin 0.5 mg/dl (0.2-1.3); Total Protein 5.8 g/dl (6.3-8.2); eGFR 49.25
[2023-12-02] MEDS: NSS (PRESERVATIVE FREE) 10 ML IV ×2 (09:54→19:37)
[2023-12-02] MEDS: NORVASC 2.5 MG PO (09:54)
[2023-12-02] MEDS: OCUVITE SOFTGEL 1 CAP PO ×2 (09:54→19:36)
[2023-12-02] MEDS: PROTONIX IV 40 MG IV ×2 (09:54→19:36)
[2023-12-02 10:04] LABS: Hematocrit 28.5 % (39.0-52.0); Hemoglobin 9.3 g/dL (13.0-18.0); Mean Corp Hgb Conc. 32.6 g/dL (33.0-37.0); Mean Corpuscular Hgb 27.4 pg (27.0-31.0); Mean Corpuscular Volume 84.1 fL (80.0-94.0); Mean Platelet Volume 10.3 fL (7.4-10.4); Platelet Count 168 10^3/uL (130-400); Red Blood Cell Count 3.39 10^6/uL (4.70-6.10); Red Cell Dist. Width 15.4 % (11.5-14.5); White Blood Cell Count 5.6 10^3/uL (4.8-10.8)
--- NOTE | 2023-12-02 12:53 | W.PN.GI.CBS2 ---
Today's Communication / Plan
-
prep today, NPO PMN for Colonoscopy with Dr. Amaya tomorrow
Assessment / Plan
-
Jose J is an 83-year-old male with past medical history significant for gastric bypass with duodenal switch in 2009, iron deficiency anemia, chronic kidney disease who presents to the ER with complaints of melena and symptomatic anemic, found to
have a hemoglobin of 6.2. He has a history of GI bleeding, with recent inpatient evaluation at [facility] s/p EGD and incomplete colonoscopy, no source identified, discharged home with recommendations to follow-up at [facility].
--11/18/23 CT A/P w/ IV and oral contrast: No acute findings in the abdomen or pelvis. A right adrenal lesion measuring 2.5 x 3 cm was seen. Prostatomegaly. Gallbladder sludge.
--Prior GI Procedures:
--EGD: 11/15/2023 ([facility]): Small hiatal hernia, mild esophagitis and gastritis. Stomach biopsies showing minimal chronic inflammation, negative for H. pylori
--Colonoscopy: 11/16/2023 ([facility]): Decreased sphincter tone on rectal exam. Upon entry blood products and some solid stool found throughout the colon along with clots limiting visualization. The colon was dilated upon entry. Trouble
advancing due to tortuosity despite counterpressure with pediatric scope. Switch to adult scope but only able to reach likely the proximal transverse colon. Diverticulosis with large mouth diverticula in the transverse colon. No active bleeding
seen.
Recommendations:
-2 peripheral gauge IVs
-active T&C
-Hgb 6.2 --> 9.3 s/p 2 units of PRBC (11/30); no bleeding since arrival
-suspect distal small bowel vs. colonic source of bleeding given blood products found throughout colon on exam at [facility], however, unable to traverse passed the transverse colon or evaluate the small bowel
-Dr. Amaya will reattempt colonoscopy tomorrow
-Clear liquid diet, colonoscopy prep
-NPO PMN
-no blood thinners, stopped his baby ASA when his bleeding returned, prior to arrival
Subjective
Subjective
Date of Service: December 02, 2023
Patient seen in follow-up this morning, no bleeding overnight. Hemoglobin 6.2 --> 9.3 following 2 units PRBC on arrival. He remains hemodynamically stable.
Objective
Data Reviewed
Laboratory Data:
Laboratory Results
12/02/23 09:40
12/02/23 07:43
Laboratory Results
PT 20.9 Sec (11.4-14.6) H 12/02/23 07:43
INR 1.79 12/02/23 07:43
APTT 54.1 Sec (23.4-35.0) H 12/02/23 07:43
Total Bilirubin 0.5 mg/dl (0.2-1.3) 12/02/23 07:43
AST 28 U/L (17-59) 12/02/23 07:43
ALT 18 U/L (0-50) 12/02/23 07:43
Alkaline Phosphatase 68 U/L (38-126) 12/02/23 07:43
Vital Signs and I&O:
Vital Signs
Temp Pulse Resp BP Pulse Ox
98 F 73 18 134/73 98
12/02/23 07:35 12/02/23 09:54 12/02/23 07:35 12/02/23 09:54 12/02/23 07:35
I&O
12/01/23 12/02/23 12/03/23
06:59 06:59 06:59
Intake Total 610 / 610
Balance 610 / 610
Physical Exam
Physical Exam
GENERAL: In no acute distress, appears comfortable
ABDOMEN: +BS; soft, non-tender and non-distended; no rebound or guarding; +large reducible ventral hernia
[2023-12-02] MEDS: DULCOLAX 10 MG PO (13:52)
[2023-12-02] MEDS: GAVILAX 238 GM PO (14:49)
--- NOTE | 2023-12-02 15:07 | CM ---
Patient seen at bedside with physician. Patient lives with in 2 story home. Patient has a cane but does not use it. Patient has been to [facility] twice and PCP is Dr. Curly Cornelius in [place]. Patient is still working and uses the
[facility] for pharmacy needs. Patient plan is home with no needs at this time. Patient is for testing tomorrow per physician. CM will continue to follow for discharge planning needs.
Plan; home with VN vs home with no needs.
[2023-12-02 15:20] VITALS: BP 161/73
[2023-12-02] MEDS: FLUSH (NSS) 1 FLUSH IV (19:37)
[2023-12-02 23:00] VITALS: BP 124/60
[2023-12-03 07:30] VITALS: BP 160/77
[2023-12-03 08:37] LABS: Blood Urea Nitrogen 17 mg/dl (9-20); Calcium 8.3 mg/dl (8.4-10.2); Carbon Dioxide 19 mmol/L (22-30); Chloride 111 mmol/L (98-107); Estimated Creatinine Clearance 40 ml/min; Glucose 97 mg/dl (70-99); Potassium 4.3 mmol/L (3.5-5.1); Sodium 136 mmol/L (135-145); eGFR 49.25
--- NOTE | 2023-12-03 09:28 | W.PN.HOSP.TC ---
Addendum entered and electronically signed by Lillian Peres MD 12/03/23 16:01:
I saw and evaluated the patient independently. I reviewed the resident�s note and agree with findings and plan as documented by Dr. Limon.
GENERAL: well developed, well nourished,male in no apparent distress
HEENT: NC/AT--no O2 requirements
HEART: regular rate and rhythm, +S1, +S2
LUNGS : clear to auscultation bilaterally
ABDOM: soft, nontender, nondistended, + bowel sounds, abdominal wall hernia
EXT: no cyanosis, clubbing, or edema
NEUROLOGIC: grossly intact
Rectal bleeding--with black stool and painless, could be upper GI source (PUD, DUD) vs lower (diverticulosis, AVMs--although they could present more melanotic rather than black), concern for possible right sided malignancy--pt has had prior
admissions at an outside hospital x 2 for same and both times received pRBC transfusions--EGD/colonoscopy done were inconclusive based on the reports reviewed)---s/p 2 units pRBC with improvement to 9.3 and apprec GI--serial H&H� 2 Large-bore
IV--if significant bleeding happens, consider nuclear med bleeding scan--CT angiography would be risky due to creat of 1.6-- EGD and colonoscopy for Wednesday and if truly neg then outpt capsule study next step--Continue IV PPI BID
Acute to subacute blood loss anemia--pt hgb 6.2 (likely chronic in nature with presumed CKD, stage 3?), compensated to some extent--iron studies show SHELBIE, pt took oral iron as outpt for 1 week then stopped--B12 and folate are adequate--after workup,
consider restarting oral iron therapy--s/p 2 units pRBC with HGB 9.0
Unknown cardiac issue--Patient states sees a metal wire technician Dr. Johnson Maria every 6 months for an unknown cardiac issue--Plans to contact Dr. Maria by Dr. Limon to see what his underlying issue is--Patient stated a carotid ultrasound and an
unspecified scan of his heart was done at [facility] and stated they both came back normal.
Elevated creatinine--likely CKD stage 3--but no true baseline labs-1.6 on admission, 1.4 today-- 1.8 on 11/22--Avoid nephrotoxic drugs
Essential HTN--Continue amlodipine 2.5 mg
Adrenal Lesion--Abdominal/pelvic enhanced done at [facility] on November 17 noted 2.5 x 3 cm right adrenal lesion which does not meet CT criteria for simple adenoma--Follow up as outpatient
DVT proph--Sequential compression device
Code status--Full code
Original Note:
Today's Communication/Plan
-
Patient is going to get colonoscopy today. Awaiting results.
Assessment / Plan
Assessment / Plan
PLAN:
#Rectal bleeding
-Prior admission to [facility] for rectal bleeding.
-Black stools, hemoglobin 6.2 on admission. After 2 units 11/30 went up to 7.8. Today its 9.3.
-GI consulted
-Continue to trend H&H and transfuse to keep hemoglobin greater than 7
� Large-bore IV
� Monitor for profuse bleeding, if significant episode of bleeding consider bleeding scan (limited on CT given his renal function)
-Colonoscopy planned for 8�2 as colonoscopy at [facility] was not done properly
-Low residue diet today, then clear liquid diet after midnight with prep the evening of 8�1 and plan for scope 8�2
�Consider capsule study outpatient pending colonoscopy. Patient has a granddaughter who works at [employer] in the GI department and be willing to help him get seen postprocedure.
-Continue IV PPI
-GI is taking pt for colonoscopy today. Awaiting report.
#Acute to subacute blood loss anemia
-Hemoglobin 6.2 on admission. MCV 83.4. Likely secondary to rectal bleeding.
-7.8 after 2 units PRBC. 12/01 is 9.3.
�Iron 29 L, TIBC 266, percent saturation 10, ferritin 10.6 L. Vitamin B-12 greater than 1000, folate 12.4
-Patient on iron supplementation
-Monitor H&H
#Unknown cardiac issue
-Patient states sees a metal wire technician Dr. Johnson Maria every 6 months for an unknown cardiac issue.
-Patient stated a carotid ultrasound and an unspecified scan of his heart was done at [facility] and stated they both came back normal.
-Denies any chest pain, shortness of breath, palpitations.
-EKG shows sinus rhythm with sinus arrhythmia with 1st degree AV block with premature ventricular complexes.
-Pt plans to continue to see metal wire technician.
#Elevated creatinine
-1.6 on admission. 1.8 on 11/22.
-12/01 cr 1.4. Today BUN 17 and Cr steady at 1.4.
-No prior baseline to compare
-Monitor creatinine
-Avoid nephrotoxic drugs
#Essential HTN
-Continue amlodipine 2.5 mg
#Adrenal Lesion
-Abdominal/pelvic enhanced done at [facility] on November 17 noted 2.5 x 3 cm right adrenal lesion which does not meet CT criteria for simple adenoma.
-Patient aware of finding. Follow up in outpatient
#DVT
-Sequential compression device
#Code status
-Full code
Anticipated Discharge: 24 - 48 hours
Subjective/Interval History
-
Date of Service: December 03, 2023
Objective Data
-
Labs:
Laboratory Results
12/03/23 12/03/23
07:54 09:00
WBC Cancelled Pending
Hgb Cancelled Pending
Hct Cancelled Pending
Plt Count Cancelled Pending
Sodium 136
Potassium 4.3
Chloride 111 H
Carbon Dioxide 19 L
BUN 17
Creatinine 1.4 H
Glucose 97
Calcium 8.3 L
Vital Signs:
Vital Signs
Temp Pulse Resp BP Pulse Ox
98.2 F 76 18 160/77 97
12/03/23 07:30 12/03/23 07:30 12/03/23 07:30 12/03/23 07:30 12/03/23 07:30
I&O
12/02/23 12/03/23 12/04/23
06:59 06:59 06:59
Intake Total 610 / 610 1800 / 1800
Balance 610 / 610 1800 / 1800
Review of Systems
-
History Source: Patient
Constitutional: Reports No Symptoms
EENT: Reports No Symptoms Reported
Respiratory: Reports No Symptoms
Cardiac: Reports No Symptoms
Abdomen/GI: Reports No Symptoms
Genitourinary: Reports No Symptoms
Neuro: Reports No Symptoms
Physical Exam
-
General: Well Developed, Well Nourished, No Apparent Distress and Comfortable
Respiratory: Clear to Auscultation
Cardiac: Regular Rhythm and S1/S2
GI: Soft, Nontender and Nondistended; Negative No Hernias
Musculoskeletal: No Edema
Neuro: AO x 3
Psych: Calm
[2023-12-03] MEDS: PROTONIX IV 40 MG IV ×2 (09:48→19:50)
[2023-12-03] MEDS: NSS (PRESERVATIVE FREE) 10 ML IV ×2 (09:48→19:50)
[2023-12-03] MEDS: OCUVITE SOFTGEL 1 CAP PO ×2 (09:48→19:50)
[2023-12-03 09:49] LABS: % Basophils 0.6 % (0-2); % Eosinophils 2.1 % (0-6); % Immature Granulocytes 0.6 % (0-0.5); % Lymphocytes 19.9 % (20.5-51.1); % Monocytes 7.6 % (1.7-9.3); % Neutrophils 69.2 % (42.2-75.2); Absolute Eosinophils 0.1 10^3/uL (0-0.7); Absolute Lymphocytes 0.9 10^3/uL (1.2-3.4); Absolute Monocytes 0.4 10^3/uL (0.1-0.6); Absolute Neutrophils 3.3 10^3/uL (1.4-6.5); Mean Corp Hgb Conc. 32.1 g/dL (33.0-37.0); Mean Corpuscular Hgb 26.9 pg (27.0-31.0); Mean Corpuscular Volume 83.6 fL (80.0-94.0); Mean Platelet Volume 10.5 fL (7.4-10.4); Nucleated Red Blood Cells % 0 % (-); Platelet Count 176 10^3/uL (130-400); Red Blood Cell Count 3.35 10^6/uL (4.70-6.10); Red Cell Dist. Width 15.5 % (11.5-14.5); White Blood Cell Count 4.7 10^3/uL (4.8-10.8)
[2023-12-03] MEDS: NORVASC 2.5 MG PO (09:49)
--- NOTE | 2023-12-03 14:34 | CM ---
Patient seen at bedside with physicians. Patient plan is for discharge home with no needs anticipated. IMM provided to patient to review. CM will continue to follow for discharge planning needs.
Plan; home with no needs vs home with VN
[2023-12-03 15:35] VITALS: BP 120/76
[2023-12-03 17:00] VITALS: BP 112/71; BP_SYST 22
[2023-12-03 17:15] VITALS: BP 145/70; BP_SYST 16
--- NOTE | 2023-12-03 17:30 | W.PN.UPDATE ---
Update Note
Progress Note Update
colonoscopy as noted mass/retained polyps. colorectal consult placed and I updated . TT sent to Dr. Peres with update
[2023-12-03 17:50] VITALS: BP 158/77
--- NOTE | 2023-12-03 19:44 | CON.CRS ---
Consultation
-
Performing Provider: Ziyad Beverly MD
Reason for Consultation: Bleeding colon mass
Medical History
-
History of Present Illness:
Patient is an 83-year-old male with PMH of CKD and HTN who initially presented to [facility] for rectal bleeding and SOB. They gave him pRBC x 4 and discharged him for outpatient workup. However, he returned 2 weeks later for recurrent
bleeding. At that time, they gave him pRBC x 2 and attempted a colonoscopy, which was complicated by poor prep and inability to reach the hepatic flexure. An EGD and CT scan was also done, but the results are not available to me. He was again
discharged for follow-up with GI. On Wednesday, he obtained blood work showing an Hb of 6.9. He had recurrence of his 'black' stools 2 days ago and came to the ED. His hemoglobin at that time was 6.2 and he received pRBC x 2, and his hemoglobin
responded appropriately. He was seen by GI who performed a colonoscopy today. It was remarkable for a fungating nonobstructing proximal ascending colon mass involving one third of the lumen which demonstrated active oozing. Biopsies were taken
and tattoos were placed. Colorectal was consulted for evaluation. Today, he feels well. Denies any cp/SOB. Denies any N/V, abdominal bloating or obstipation. Per his son, he is not very active. The patient states that he can walk up a flight
of stairs without shortness of breath, but his son states that he usually takes the moving chair up the stairs. He does see a city dispatch supervisor, he is unclear why.
Past Medical History
Past Medical History: Other (As above)
Past Surgical History: Other (Left upper extremity surgery, laparoscopic duodenal switch 14 years ago)
Social History
Tobacco: Former Smoker (Quit 40 years ago)
Alcohol: Occasional (Occasional)
Drug: None
Personal:
Living: With Family
Family History
Family History: Other (Father of metastatic cancer at 36)
Allergies / Home Medications
Allergy/AdvReac Type Severity Reaction Status Date / Time
No Known Allergies Allergy Verified 12/01/23 08:51
�Medication �Instructions �Recorded �Confirmed �Type
amlodipine 2.5 mg tablet (Norvasc) 2.5 mg PO DAILY Blood Pressure 12/01/23 12/01/23 History
pantoprazole 40 mg tablet,delayed 40 mg PO DAILY Gastrointestinal 12/01/23 12/01/23 History
release Issue
vitamins A,C,Z-whwp-hhhvik 2,148 1 tab PO BID Supplement 12/01/23 12/01/23 History
mcg-113 mg-45 mg-17.4 mg tablet
(PreserVision AREDS)
Review of Systems
-
All other systems: Negative unless noted
A 10 point review of systems was completed, and was negative except as per HPI.
Physical Exam
Vital Signs
Temp 97.3 F 12/03/23 17:50
Pulse 69 12/03/23 17:50
Resp Rate 18 12/03/23 17:50
Blood pressure 158/77 12/03/23 17:50
SaO2 96 12/03/23 17:50
12/02/23 12/03/23 12/04/23
06:59 06:59 06:59
Actual Weight 83.915 kg
Body Mass Index (BMI) 26.5
Lab Results / Allergies
12/03/23 09:00
12/03/23 07:54
WBC 4.7 10^3/uL (4.8-10.8) L 12/03/23 09:00
Hgb 9.0 g/dL (13.0-18.0) L 12/03/23 09:00
Hct 28.0 % (39.0-52.0) L 12/03/23 09:00
Plt Count 176 10^3/uL (130-400) 12/03/23 09:00
Abs Immat Gran (auto) 0.0 10^3/uL (0-0.05) 12/03/23 09:00
Neutrophils % 69.2 % (42.2-75.2) 12/03/23 09:00
Allergy/AdvReac Type Severity Reaction Status Date / Time
No Known Allergies Allergy Verified 12/01/23 08:51
Physical Exam
General: Well Developed, Well Nourished and No Apparent Distress
HEENT: Normocephalic and Atraumatic
Respiratory: Non Labored Respirations
GI: Soft, Non Tender, Non Distended and Other (No rebound or guarding)
Skin: Warm and Dry
Neuro: AO x 3
Data Reviewed
-
Labs: Labs Reviewed by me and Discussed with Patient
Assessment / Plan
-
83-year-old male with PMH of CKD and HTN who presents for rectal bleeding requiring 2 admissions at [facility] and multiple transfusions, presents to [place] with recurrent bleeding and hemoglobin of 6.2, s/p pRBC x 2. Colonoscopy done today
showing a proximal ascending colon, non-obstructing, with evidence of oozing. It was biopsied and tattooed.
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
�Follow-up path
�Will send CEA and obtain CT CAP with p.o. and IV contrast tomorrow
�Had extensive discussion with patient and patient's and son; explained the workup and treatment for colon cancer, including a CT scan to investigate for metastatic spread; usually if there is evidence of spread, we would recommend starting
with chemotherapy; however, his mass is bleeding and has required multiple transfusions and repeat admissions over the last 1.5 months; therefore, I would recommend moving forward with surgery independent of the results of the pathology and CT
scans; will tentatively plan for Wednesday
�Will request cardiology consult for preoperative risk assessment and optimization
� Patient already had full liquids; okay for regular diet; will redo the bowel prep on Wednesday with p.o. antibiotics
� If Hb stable, okay for DVT PPx from surgical standpoint
� OOB, encourage I-S
� Appreciate hospitalist
[2023-12-03 23:41] VITALS: BP 126/66
[2023-12-04 07:55] VITALS: BP 147/68
[2023-12-04] MEDS: OCUVITE SOFTGEL 1 CAP PO ×2 (07:57→19:44)
[2023-12-04] MEDS: OMNIPAQUE 50 ML PO (07:57)
[2023-12-04] MEDS: NORVASC 2.5 MG PO (07:57)
[2023-12-04] MEDS: PROTONIX IV 40 MG IV ×2 (07:58→19:44)
[2023-12-04] MEDS: NSS (PRESERVATIVE FREE) 10 ML IV ×2 (07:58→19:44)
[2023-12-04 08:57] LABS: Blood Urea Nitrogen 18 mg/dl (9-20); Carbon Dioxide 22 mmol/L (22-30); Estimated Creatinine Clearance 37 ml/min; Potassium 3.9 mmol/L (3.5-5.1); eGFR 45.34
[2023-12-04 09:08] LABS: Chloride 110 mmol/L (98-107); Glucose 94 mg/dl (70-99); Sodium 136 mmol/L (135-145)
[2023-12-04 09:26] LABS: CEA 20.6 ng/ml
[2023-12-04 09:39] LABS: Hematocrit 26.6 % (39.0-52.0); Hemoglobin 8.6 g/dL (13.0-18.0); Mean Corp Hgb Conc. 32.3 g/dL (33.0-37.0); Mean Corpuscular Hgb 26.5 pg (27.0-31.0); Mean Corpuscular Volume 81.8 fL (80.0-94.0); Mean Platelet Volume 11.1 fL (7.4-10.4); Platelet Count 209 10^3/uL (130-400); Red Blood Cell Count 3.25 10^6/uL (4.70-6.10); Red Cell Dist. Width 15.8 % (11.5-14.5); White Blood Cell Count 6.7 10^3/uL (4.8-10.8)
--- NOTE | 2023-12-04 11:01 | W.PN.HOSP.TC ---
Today's Communication/Plan
-
await CT scan
apprec CRS
Assessment / Plan
Assessment / Plan
pt is an 83 year old male
Rectal bleeding-- concern for possible right sided malignancy, confirmed on colonoscopy 12/02--s/p 2 units pRBC with improvement to 9.3 and apprec GI--serial H&H----Continue IV PPI--apprec CRS--CT scan pending--surgery Wednesday--CEA 20.6
Acute to subacute blood loss anemia--pt hgb 6.2 (likely chronic in nature with presumed CKD, stage 3?), compensated to some extent--iron studies show SHELBIE, pt took oral iron as outpt for 1 week then stopped--B12 and folate are adequate--after workup,
consider restarting oral iron therapy--s/p 2 units pRBC with HGB 9.0
Unknown cardiac issue--Patient states sees a extension professor Dr. Johnson Maria every 6 months for an unknown cardiac issue--Plans to contact Dr. Maria by Dr. Limon to see what his underlying issue is--Patient stated a carotid ultrasound and an
unspecified scan of his heart was done at [facility] and stated they both came back normal.
Elevated creatinine--likely CKD stage 3---Avoid nephrotoxic drugs
Essential HTN--Continue amlodipine 2.5 mg
Adrenal Lesion--Abdominal/pelvic enhanced done at [facility] on November 17 noted 2.5 x 3 cm right adrenal lesion which does not meet CT criteria for simple adenoma--Follow up as outpatient, CT scan here pending
DVT proph--Sequential compression device
Code status--Full code
Anticipated Discharge: > 48 hours
Subjective/Interval History
-
Date of Service: December 04, 2023
pt without c/o
Objective Data
-
Labs:
Laboratory Results
12/04/23
08:03
WBC 6.7
Hgb 8.6 L
Hct 26.6 L
Plt Count 209
Sodium 136
Potassium 3.9
Chloride 110 H
Carbon Dioxide 22
BUN 18
Creatinine 1.5 H
Glucose 94
Calcium 8.0 L
Vital Signs:
max temp for 24 hours
12/03/23
17:00
Temp 98.4 F
Vital Signs
Temp Pulse Resp BP Pulse Ox
97.3 F 71 20 147/68 99
12/04/23 07:55 12/04/23 07:55 12/04/23 07:55 12/04/23 07:55 12/04/23 07:55
I&O
12/03/23 12/04/23 12/05/23
06:59 06:59 06:59
Intake Total 1800 / 1800 480 / 480
Balance 1800 / 1800 480 / 480
Review of Systems
-
All other systems: Reviewed and negative
Physical Exam
-
General: Well Developed, Well Nourished and No Apparent Distress
HEENT: Normocephalic and Atraumatic
Respiratory: Clear to Auscultation; Negative Wheezes or Rhonchi
Cardiac: Regular Rhythm and S1/S2; Negative Murmur
GI: Soft, Nontender, Nondistended and Normal Bowel Sounds
Musculoskeletal: No Clubbing, No Cyanosis and No Edema
Neuro: Awake
Psych: Calm
--- NOTE | 2023-12-04 11:36 | W.PN.GI.CBS2 ---
Addendum entered and electronically signed by Marichuy Son MD 12/04/23 15:21:
I saw and examined the patient.
The CLINICAL PATHOLOGIST or PA's note was reviewed and I agree with the note.
Comment: 83 yo M new diagnosis of colon ca
I reviewed ct with pt
CEA 20.6
Plan OR on Wednesday
I d/w Joselyn Ramey and Jose Luis yesterday
GI will sign off
All questions answered
Pls call with ?s
Original Note:
Today's Communication / Plan
-
s/p colonoscopy with finding and noted mass as noted path pending
s/p surgical evaluation for OR Wednesday
hbg 8.6 with noted iron deficiency
CT for staging as noted
add IV iron with iron deficiency
reviewed with last PM for findings
will sign off call with questions
Assessment / Plan
-
Jose J is an 83-year-old male with past medical history significant for gastric bypass with duodenal switch in 2009, iron deficiency anemia, chronic kidney disease who presents to the ER with complaints of melena and symptomatic anemic, found to
have a hemoglobin of 6.2. He has a history of GI bleeding, with recent inpatient evaluation at [facility] s/p EGD and incomplete colonoscopy, no source identified, discharged home with recommendations to follow-up at [facility].
--11/18/23 CT A/P w/ IV and oral contrast: No acute findings in the abdomen or pelvis. A right adrenal lesion measuring 2.5 x 3 cm was seen. Prostatomegaly. Gallbladder sludge.
--Prior GI Procedures:
--EGD: 11/15/2023 ([facility]): Small hiatal hernia, mild esophagitis and gastritis. Stomach biopsies showing minimal chronic inflammation, negative for H. pylori
--Colonoscopy: 11/16/2023 ([facility]): Decreased sphincter tone on rectal exam. Upon entry blood products and some solid stool found throughout the colon along with clots limiting visualization. The colon was dilated upon entry. Trouble
advancing due to tortuosity despite counterpressure with pediatric scope. Switch to adult scope but only able to reach likely the proximal transverse colon. Diverticulosis with large mouth diverticula in the transverse colon. No active bleeding
seen.
--colonoscopy 12/03/23 Dr. Amaya Preparation of the colon was inadequate.- Hemorrhoids found on perianal exam.
- Blood in the entire examined colon. Malignant tumor in the proximal ascending colon.
Biopsied. Tattooed - Multiple 4 to 9 mm polyps in the transverse colon
and at the hepatic flexure. Resection not attempted.
- Diverticulosis in the sigmoid colon, in the
descending colon and in the transverse colon.
- Internal hemorrhoids.
12/04/23 CT A/p
1. There are scattered groundglass opacities within the right upper lobe and right middle lobe which measure up to 1.2 cm and may be infectious/inflammatory. Recommend follow-up CT to ensure resolution.
2. 1.9 cm hypodense nodule with calcification in the inferior aspect of the left hemithyroid. Recommend thyroid ultrasound for further evaluation if not previously evaluated.
3. Changes of partial gastrectomy with a moderate-sized hiatal hernia. There is thickening of the distal esophagus which can be seen with esophagitis.
4. There is circumferential wall thickening of the ascending colon which may represent colitis however malignancy cannot be excluded. Consider follow-up colonoscopy.
5. 2.5 cm right adrenal nodule which is indeterminate although may represent adenoma. Consider dedicated imaging as clinically warranted.
-anemia
-colon mass
-hx gastric bypass
-ground glass opacification
-thyroid nodule
Recommendations:
s/p colonoscopy with finding and noted mass as noted path pending
s/p surgical evaluation for OR Wednesday
hbg 8.6 with noted iron deficiency
CT for staging as noted
add IV iron with iron deficiency
reviewed with last PM for findings
will sign off call with questions
Subjective
Subjective
Date of Service: December 04, 2023
on regular diet, stool with prep for colon
Objective
Data Reviewed
Laboratory Data:
Laboratory Results
12/04/23 08:03
12/04/23 08:03
Laboratory Results
PT 20.9 Sec (11.4-14.6) H 12/02/23 07:43
INR 1.79 12/02/23 07:43
APTT 54.1 Sec (23.4-35.0) H 12/02/23 07:43
Total Bilirubin 0.5 mg/dl (0.2-1.3) 12/02/23 07:43
AST 28 U/L (17-59) 12/02/23 07:43
ALT 18 U/L (0-50) 12/02/23 07:43
Alkaline Phosphatase 68 U/L (38-126) 12/02/23 07:43
Vital Signs and I&O:
Vital Signs
Temp Pulse Resp BP Pulse Ox
97.3 F 71 20 147/68 99
12/04/23 07:55 12/04/23 07:55 12/04/23 07:55 12/04/23 07:55 12/04/23 07:55
I&O
12/03/23 12/04/23 12/05/23
06:59 06:59 06:59
Intake Total 1800 / 1800 480 / 480
Balance 1800 / 1800 480 / 480
Physical Exam
Physical Exam
HEENT: Anicteric and Moist mucous membranes
Cardiology: Normal Sinus Rhythm
Pulmonary: Clear
GI: Soft, Non Distended and Non Tender
Extremities: No Edema
Neuro: Non Focal
[2023-12-04] MEDS: FERRLECIT 110 MG IV (12:35)
[2023-12-04 15:30] VITALS: BP 132/61
[2023-12-04 23:55] VITALS: BP 141/62
[2023-12-05 07:55] VITALS: BP 140/67
[2023-12-05] MEDS: PROTONIX IV 40 MG IV ×2 (08:31→20:47)
[2023-12-05] MEDS: OCUVITE SOFTGEL 1 CAP PO ×2 (08:31→20:47)
[2023-12-05] MEDS: NORVASC 2.5 MG PO (08:31)
[2023-12-05] MEDS: NSS (PRESERVATIVE FREE) 10 ML IV ×2 (08:32→20:47)
[2023-12-05 08:37] LABS: Hematocrit 27.7 % (39.0-52.0); Mean Corp Hgb Conc. 32.5 g/dL (33.0-37.0); Mean Corpuscular Hgb 26.7 pg (27.0-31.0); Mean Corpuscular Volume 82.2 fL (80.0-94.0); Mean Platelet Volume 11.8 fL (7.4-10.4); Platelet Count 208 10^3/uL (130-400); Red Blood Cell Count 3.37 10^6/uL (4.70-6.10); Red Cell Dist. Width 15.9 % (11.5-14.5); White Blood Cell Count 5.7 10^3/uL (4.8-10.8)
[2023-12-05 09:17] LABS: Blood Urea Nitrogen 24 mg/dl (9-20); Calcium 8.2 mg/dl (8.4-10.2); Carbon Dioxide 22 mmol/L (22-30); Chloride 111 mmol/L (98-107); Estimated Creatinine Clearance 35 ml/min; Glucose 82 mg/dl (70-99); Magnesium 1.9 mg/dl (1.6-2.3); Potassium 4.3 mmol/L (3.5-5.1); Sodium 138 mmol/L (135-145); eGFR 41.96
--- NOTE | 2023-12-05 10:22 | W.PN.HOSP.TC ---
Today's Communication/Plan
-
Surgery Wednesday
Assessment / Plan
Assessment / Plan
pt is an 83 year old male
Rectal bleeding-- concern for possible right sided malignancy, confirmed on colonoscopy 12/02--s/p 2 units pRBC with improvement to 9.3 and apprec GI--serial H&H----Continue IV PPI--apprec CRS--CT scan reviewed, no significant findings--surgery
Wednesday--CEA 20.6
Acute to subacute blood loss anemia--pt hgb 6.2 (likely chronic in nature with presumed CKD, stage 3?), compensated to some extent--iron studies show SHELBIE, pt took oral iron as outpt for 1 week then stopped--B12 and folate are adequate--after workup,
consider restarting oral iron therapy--s/p 2 units pRBC with HGB 9.0
Unknown cardiac issue--Patient states sees a steward/stewardess second class Dr. Johnson Maria every 6 months for an unknown cardiac issue--Plans to contact Dr. Maria by Dr. Limon to see what his underlying issue is--Patient stated a carotid ultrasound and an
unspecified scan of his heart was done at [facility] and stated they both came back normal--may need to consult cards Wednesday for cardiac clearance for surgery
Elevated creatinine--likely CKD stage 3---Avoid nephrotoxic drugs
Essential HTN--Continue amlodipine 2.5 mg
Adrenal Lesion--Abdominal/pelvic enhanced done at [facility] on November 17 noted 2.5 x 3 cm right adrenal lesion which does not meet CT criteria for simple adenoma--Follow up as outpatient, CT scan here pending
DVT proph--Sequential compression device
Code status--Full code
Anticipated Discharge: > 48 hours
Subjective/Interval History
-
Date of Service: December 05, 2023
pt waiting for surgery
Objective Data
-
Labs:
Laboratory Results
12/05/23
06:41
WBC 5.7
Hgb 9.0 L
Hct 27.7 L
Plt Count 208
Sodium 138
Potassium 4.3
Chloride 111 H
Carbon Dioxide 22
BUN 24 H
Creatinine 1.6 H
Glucose 82
Calcium 8.2 L
Vital Signs:
max temp for 24 hours
12/04/23
15:30
Temp 97.9 F
Vital Signs
Temp Pulse Resp BP Pulse Ox
97.8 F 74 16 140/67 100
12/05/23 07:55 12/05/23 07:55 12/05/23 07:55 12/05/23 07:55 12/05/23 07:55
I&O
12/04/23 12/05/23 12/06/23
06:59 06:59 06:59
Intake Total 1899
Balance 1899
Review of Systems
-
All other systems: Reviewed and negative
Physical Exam
-
General: Well Developed, Well Nourished and No Apparent Distress
HEENT: Normocephalic and Atraumatic
Respiratory: Clear to Auscultation; Negative Wheezes or Rhonchi
Cardiac: Regular Rhythm and S1/S2; Negative Murmur
GI: Soft, Nontender, Nondistended and Normal Bowel Sounds
Musculoskeletal: No Clubbing, No Cyanosis and No Edema
Skin: Warm
Neuro: Awake
Psych: Calm
[2023-12-05] MEDS: FERRLECIT 110 MG IV (13:42)
[2023-12-05 15:00] VITALS: BP 117/62
[2023-12-05 23:55] VITALS: BP 139/67
[2023-12-06 07:25] VITALS: BP 150/65
--- NOTE | 2023-12-06 08:47 | CON.CAR ---
Addendum entered and electronically signed by Ephraim Xiong MD 12/07/23 07:57:
I saw and examined the patient.
The PERSONNEL SPECIALIST's note was reviewed and I agree with the note.
Comment: 83 y/o male with hypertension, bifascicular block, and CKD who had recent hospitalizations for GIB and anemia requiring blood transfusions. He is here for recurrent GIB and anemia. He is seen to have a colon mass with plan for surgery
tomorrow.
He has no symptoms of ischemia, HF, or arrhythmia and is easily able to achieve > 4 METs without CV symptoms. He is above average risk but needs no furhter testing or medications.
We will sign off, please call with questions/concerns.
Original Note:
Consultation
Consultation Request
Date/Time Consultation Requested: 12/06/23747
Date/Time Consultation Performed: 12/06/23829
Requesting Provider: Ziyad Beverly
Performing Provider: Alejandra COTO for Dr. Xiong
Reason for Consultation: pre-op cardiovascular risk assessment
Medical History
-
Chief Complaint: GIB
History of Present Illness:
83 y/o male with hypertension, bifascicular block, and CKD who had recent hospitalizations for GIB and anemia requiring blood transfusions. He is here for recurrent GIB and anemia. He is seen to have a colon mass with plan for surgery tomorrow. We
are consulted for pre-op cardiovascular risk assessment. He denies any CP, SOB, dizziness, or syncope. He follows with Dr. Bird/Crow.
Past Medical History
Past Medical History: HTN and Other (CKD, bifasicular block)
Social History
Tobacco: Former Smoker (quit 40 years ago)
Alcohol: Occasional (rare beer)
Personal: (66 years)
Family History
Family History: Reviewed & Not Pertinent
Allergies / Home Medications
Allergy/AdvReac Type Severity Reaction Status Date / Time
No Known Allergies Allergy Verified 12/01/23 08:51
�Medication �Instructions �Recorded �Confirmed �Type
amlodipine 2.5 mg tablet (Norvasc) 2.5 mg PO DAILY Blood Pressure 12/01/23 12/01/23 History
pantoprazole 40 mg tablet,delayed 40 mg PO DAILY Gastrointestinal 12/01/23 12/01/23 History
release Issue
vitamins A,C,B-hmpj-eikysx 2,148 1 tab PO BID Supplement 12/01/23 12/01/23 History
mcg-113 mg-45 mg-17.4 mg tablet
(PreserVision AREDS)
Review of Systems
-
History Source: Patient
All other systems: Negative unless noted
Abdomen/GI: Black Stools
Physical Exam
Vital Signs
Temp Pulse Resp BP Pulse Ox
98.1 F 72 16 150/65 99
12/06/23 07:25 12/06/23 07:25 12/06/23 07:25 12/06/23 07:25 12/06/23 07:25
Physical Exam
General: Well Developed, Well Nourished and No Apparent Distress
HEENT: Normocephalic and Anicteric
Respiratory: Clear and Non Labored Respirations
Cardiac: Regular Rhythm
Musculoskeletal: No Edema
Skin: Warm and Dry
Neuro: AO x 3
Psych: Calm
Impression / Plan
-
Colon mass:
-plan is for OR tomorrow
-pre-op cardiovascular risk assessment: patient with history of bifascicular block by EKG. This is stable to my review. He denies any CP, SOB, dizziness, or syncope. He denies any history of CHF or CAD. He uses stairs and walks without any cardiac
symptoms. He is at above average risk for surgery according NSQIP risk calculator. However, he has no active cardiac symptoms, and there is no contraindication to proposed procedure from cardiac perspective.
Bifascicular block, 1st degree AVB:
-stable from previous EKG and no concerning symptoms
-continue OP cardiology follow-up
Anemia:
-AM labs pending, but seems to be stable s/p transfusion
CKD:
-seems to be stable here
-follow creat
HTN:
-continue amlodipine and monitor BP's
Data Reviewed
-
EKG: Tracing Personally Visualized and interpreted (SR with 1st degree AVB PVC's, bifasicular block- stable)
Labs: Labs Reviewed by me (AM labs pending, but previous labs reviewed)
--- NOTE | 2023-12-06 08:52 | W.PN.CRS1 ---
Today's Communication / Plan
-
Card consult for preop risk stratification
Clears, golyltely and PO abx prep, NPO at midnight
Assessment/Plan
-
83-year-old male with PMH of CKD and HTN who presents for rectal bleeding requiring 2 admissions at [facility] and multiple transfusions, presents to [place] with recurrent bleeding and hemoglobin of 6.2, s/p pRBC x 2. Colonoscopy done today
showing a proximal ascending colon, non-obstructing, with evidence of oozing. It was biopsied and tattooed.
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
�Follow-up path
�CEA 20.6
-CTCAP - RUL/RML opacities, more consistent with infectious (d/w Dr. Garcia), adrenal nodule possibly adenoma, thyroid nodule, hiatal hernia, thickening of ascending colon, no other concern for mets
�Plan for OR tmrw; bowel and antibiotic prep today
�Will request cardiology consult for preoperative risk assessment and optimization
� Clears, NPO at midnight
� Ok for DVT ppx
� OOB, encourage I-S
� Appreciate hospitalist
Subjective Data
Subjective Data
Date of Service: December 06, 2023
No overnight events.
Denies any pain.
Denies nausea/vomiting. Tolerating diet, on clears today.
+voiding
Pt is OOB.
Objective Data
-
Vital Signs
Temp Pulse Resp BP Pulse Ox
98.1 F 72 16 150/65 99
12/06/23 07:25 12/06/23 07:25 12/06/23 07:25 12/06/23 07:25 12/06/23 07:25
Intake & Output
12/05/23 12/06/23 12/07/23
06:59 06:59 06:59
Intake Total 1900 / 1900 600 / 600
Balance 1900 / 1900 600 / 600
Intake:
Oral fluids 1800 / 1800 600 / 600
IV piggybacks 100 / 100
Other:
Number of approximated MODERATE 3 2
amounts of urine
Physical Exam
-
General: No Acute Distress and AOx3
HEENT: Grossly Normal
Abdomen: Soft, Non Distended, Non Tender, No Guarding and No Rebound
Skin: Warm and Dry
Data Reviewed
-
CT Scan: Image Reviewed and Discussed with Radiology
[2023-12-06 09:15] LABS: Hematocrit 24.5 % (39.0-52.0); Hemoglobin 7.8 g/dL (13.0-18.0); Mean Corp Hgb Conc. 31.8 g/dL (33.0-37.0); Mean Corpuscular Hgb 27.6 pg (27.0-31.0); Mean Corpuscular Volume 86.6 fL (80.0-94.0); Mean Platelet Volume 10.7 fL (7.4-10.4); Platelet Count 165 10^3/uL (130-400); Red Blood Cell Count 2.83 10^6/uL (4.70-6.10); Red Cell Dist. Width 16.3 % (11.5-14.5); White Blood Cell Count 4.6 10^3/uL (4.8-10.8)
[2023-12-06 09:36] LABS: INR 1.61
[2023-12-06] MEDS: OCUVITE SOFTGEL 1 CAP PO ×2 (09:42→20:07)
[2023-12-06] MEDS: NORVASC 2.5 MG PO (09:43)
[2023-12-06] MEDS: PROTONIX IV 40 MG IV ×2 (09:43→20:07)
[2023-12-06] MEDS: NSS (PRESERVATIVE FREE) 10 ML IV ×2 (09:44→20:07)
--- NOTE | 2023-12-06 09:52 | W.PN.HOSP.TC ---
Addendum entered and electronically signed by Tam Abreu MD 12/06/23 20:14:
I saw and evaluated the patient. I reviewed the resident�s note and agree with findings and plan as documented in the resident�s note.
Original Note:
Today's Communication/Plan
-
Patient cleared by cardiology for surgery. Patient being prepped for surgery tomorrow.
Assessment / Plan
Assessment / Plan
pt is an 83 year old male
Rectal bleeding-- concern for possible right sided malignancy, confirmed on colonoscopy 12/02--s/p 2 units pRBC with improvement to 9.3 and apprec GI--serial H&H----Continue IV PPI--apprec CRS--CT scan reviewed, no significant findings--surgery
Wednesday--CEA 20.6
Acute to subacute blood loss anemia--pt hgb 6.2 (likely chronic in nature with presumed CKD, stage 3?), compensated to some extent--iron studies show SHELBIE, pt took oral iron as outpt for 1 week then stopped--B12 and folate are adequate--after workup,
consider restarting oral iron therapy--s/p 2 units pRBC with HGB 9.0. 8/5 hg 7.8.
Unknown cardiac issue--Patient states sees a multiple drill operator Dr. Johnson Maria every 6 months for an unknown cardiac issue--Plans to contact Dr. Maria by Dr. Limon to see what his underlying issue is--effort made to contact multiple drill operator. Awaiting call
--Patient stated a carotid ultrasound and an unspecified scan of his heart was done at [facility] and stated they both came back normal--Cardiology consulted and cleared for surgery tomorrow
Elevated creatinine--likely CKD stage 3---Avoid nephrotoxic drugs
Essential HTN--Continue amlodipine 2.5 mg
Adrenal Lesion--Abdominal/pelvic enhanced done at [facility] on November 17 noted 2.5 x 3 cm right adrenal lesion which does not meet CT criteria for simple adenoma--Follow up as outpatient, CT scan here consistent with [facility]
findings.
DVT proph--Sequential compression device
Code status--Full code
Anticipated Discharge: > 48 hours
Subjective/Interval History
-
Date of Service: December 06, 2023
Objective Data
-
Labs:
Laboratory Results
12/06/23
08:55
WBC 4.6 L
Hgb 7.8 L
Hct 24.5 L
Plt Count 165 D
PT 19.0 H
INR 1.61
Sodium Pending
Potassium Pending
Chloride Pending
Carbon Dioxide Pending
BUN Pending
Creatinine Pending
Glucose Pending
Calcium Pending
Vital Signs:
Vital Signs
Temp Pulse Resp BP Pulse Ox
98.1 F 72 16 150/65 99
12/06/23 07:25 12/06/23 09:43 12/06/23 07:25 12/06/23 09:43 12/06/23 07:25
I&O
12/05/23 12/06/23 12/07/23
06:59 06:59 06:59
Intake Total 1900 / 1900 600 / 600
Balance 1900 / 1900 600 / 600
Review of Systems
-
History Source: Patient
EENT: Reports No Symptoms Reported
Respiratory: Reports No Symptoms
Cardiac: Reports No Symptoms
Abdomen/GI: Reports Black Stools
Neuro: Reports No Symptoms
Physical Exam
-
General: Well Developed, Well Nourished and No Apparent Distress
Respiratory: Clear to Auscultation
Cardiac: Regular Rhythm and S1/S2
GI: Soft, Nontender and Nondistended
Musculoskeletal: No Cyanosis and No Edema
Neuro: AO x 3
Psych: Calm
--- NOTE | 2023-12-06 10:24 | CM ---
CM reviewed chart, patient for OR tomorrow. Patient seen bedside, reports no needs to CM at this time. CM will continue to follow for all discharge planning needs.
Plan; watch for VN needs closer to discharge.
[2023-12-06 11:35] LABS: Blood Urea Nitrogen 24 mg/dl (9-20); Calcium 8.2 mg/dl (8.4-10.2); Carbon Dioxide 19 mmol/L (22-30); Chloride 113 mmol/L (98-107); Estimated Creatinine Clearance 35 ml/min; Glucose 140 mg/dl (70-99); Magnesium 1.8 mg/dl (1.6-2.3); Sodium 140 mmol/L (135-145); eGFR 41.96
[2023-12-06] MEDS: NEOMYCIN 1000 MG PO ×2 (13:59→15:38)
[2023-12-06] MEDS: FERRLECIT 110 MG IV (13:59)
[2023-12-06] MEDS: FLAGYL 1000 MG PO ×2 (14:47→16:39)
[2023-12-06 15:25] VITALS: BP 148/61
[2023-12-06] MEDS: NULYTELY SOLUTION 4 LITERS PO (16:39)
[2023-12-06 23:20] VITALS: BP 170/74
[2023-12-07] VITALS (10 sets, daily range): BP systolic 135–155; BP diastolic 62–77
[2023-12-07] MEDS: FLAGYL 1000 MG PO (00:04)
[2023-12-07] MEDS: NEOMYCIN 1000 MG PO (00:05)
[2023-12-07] MEDS: ENTEREG 12 MG PO (06:14)
[2023-12-07] MEDS: TYLENOL 1000 MG PO ×2 (06:14→17:04)
[2023-12-07] MEDS: HEPARIN 5000 UNITS SC (06:15)
[2023-12-07] MEDS: NORVASC 2.5 MG PO (08:10)
[2023-12-07] MEDS: OCUVITE SOFTGEL 1 CAP PO ×2 (08:11→20:25)
[2023-12-07] MEDS: NSS (PRESERVATIVE FREE) 10 ML IV ×2 (08:11→20:24)
[2023-12-07] MEDS: FLUSH (NSS) 1 FLUSH IV (08:11)
[2023-12-07] MEDS: PROTONIX IV 40 MG IV ×2 (08:11→20:25)
--- NOTE | 2023-12-07 08:38 | W.PN.HOSP.TC ---
Addendum entered and electronically signed by Tam Abreu MD 12/07/23 14:58:
I saw and evaluated the patient. I reviewed the resident�s note and agree with findings and plan as documented in the resident�s note.
Original Note:
Today's Communication/Plan
-
Patient going to surgery today.
Assessment / Plan
Assessment / Plan
pt is an 83 year old male
Rectal bleeding-- concern for possible right sided malignancy, confirmed on colonoscopy 12/02--s/p 2 units pRBC with improvement to 9.3 and apprec GI--serial H&H----Continue IV PPI--apprec CRS--CT scan reviewed, no significant findings--surgery
Today--CEA 20.6
Acute to subacute blood loss anemia--pt hgb 6.2 (likely chronic in nature with presumed CKD, stage 3?), compensated to some extent--iron studies show SHELBIE, pt took oral iron as outpt for 1 week then stopped--B12 and folate are adequate--after workup,
consider restarting oral iron therapy--s/p 2 units pRBC with HGB 9.0. 8/6 8.9.
First degree AV heart block -- Sees a desktop analyst every 6 months for monitoring consistent with EKG findings-- Draw Frame Tender contacted -- said last Echo in August had an EF of 55% and pt seen for first degree AV heart block ---Cardiology consulted
and cleared for surgery tomorrow
Elevated creatinine--likely CKD stage 3---Avoid nephrotoxic drugs
Essential HTN--Continue amlodipine 2.5 mg
Adrenal Lesion--Abdominal/pelvic enhanced done at on November 17 noted 2.5 x 3 cm right adrenal lesion which does not meet CT criteria for simple adenoma--Follow up as outpatient, CT scan here consistent with [facility]
findings.
DVT proph--Sequential compression device
Code status--Full code
Anticipated Discharge: 24 - 48 hours
Subjective/Interval History
-
Date of Service: December 07, 2023
Objective Data
-
Labs:
Laboratory Results
12/07/23
08:26
WBC Pending
Hgb Pending
Hct Pending
Plt Count Pending
APTT Pending
Sodium Pending
Potassium Pending
Chloride Pending
Carbon Dioxide Pending
BUN Pending
Creatinine Pending
Glucose Pending
Calcium Pending
Vital Signs:
Vital Signs
Temp Pulse Resp BP Pulse Ox
97.5 F 65 14 144/62 98
12/07/23 07:00 12/07/23 08:10 12/07/23 07:00 12/07/23 08:10 12/07/23 08:09
I&O
12/06/23 12/07/23 12/08/23
06:59 06:59 06:59
Intake Total 600 / 600
Balance 600 / 600
Review of Systems
-
History Source: Patient
EENT: Reports No Symptoms Reported
Respiratory: Reports No Symptoms
Cardiac: Reports No Symptoms
Abdomen/GI: Reports No Symptoms
Genitourinary: Reports No Symptoms
Neuro: Reports No Symptoms
Physical Exam
-
General: Well Developed, Well Nourished and No Apparent Distress
Respiratory: Clear to Auscultation
Cardiac: Regular Rhythm and S1/S2
GI: Soft, Nontender and Nondistended
Musculoskeletal: No Edema
Neuro: AO x 3
Psych: Calm
[2023-12-07 09:01] LABS: % Basophils 1.1 % (0-2); % Eosinophils 3.6 % (0-6); % Immature Granulocytes 0.6 % (0-0.5); % Lymphocytes 26.8 % (20.5-51.1); % Monocytes 8.1 % (1.7-9.3); % Neutrophils 59.8 % (42.2-75.2); Absolute Basophils 0.1 10^3/uL (0-0.2); Absolute Eosinophils 0.2 10^3/uL (0-0.7); Absolute Lymphocytes 1.3 10^3/uL (1.2-3.4); Absolute Monocytes 0.4 10^3/uL (0.1-0.6); Absolute Neutrophils 2.8 10^3/uL (1.4-6.5); Hematocrit 27.6 % (39.0-52.0); Hemoglobin 8.9 g/dL (13.0-18.0); Mean Corp Hgb Conc. 32.2 g/dL (33.0-37.0); Mean Corpuscular Hgb 27.2 pg (27.0-31.0); Mean Corpuscular Volume 84.4 fL (80.0-94.0); Mean Platelet Volume 10.8 fL (7.4-10.4); Nucleated Red Blood Cells % 0 % (-); Platelet Count 198 10^3/uL (130-400); Red Blood Cell Count 3.27 10^6/uL (4.70-6.10); Red Cell Dist. Width 16.3 % (11.5-14.5); White Blood Cell Count 4.7 10^3/uL (4.8-10.8)
[2023-12-07 09:13] LABS: APTT 45.5 Sec (23.4-35.0)
[2023-12-07 09:31] LABS: Blood Urea Nitrogen 17 mg/dl (9-20); Calcium 8.4 mg/dl (8.4-10.2); Carbon Dioxide 18 mmol/L (22-30); Chloride 111 mmol/L (98-107); Estimated Creatinine Clearance 35 ml/min; Glucose 93 mg/dl (70-99); Potassium 4.1 mmol/L (3.5-5.1); Sodium 137 mmol/L (135-145); eGFR 41.96
--- NOTE | 2023-12-07 13:58 | W.IMMPOSTOP ---
Surgical Immed Post Op Note
-
Primary Surgeon: Ziyad Beverly MD
Assisting Surgeon: MAURIZIO Calles
Pre-op Diagnosis: Bleeding colon mass
Post-op Diagnosis: Bleeding colon mass
Procedure Performed: Robotic right hemicolectomy, lysis of adhesions greater than 60 minutes, laparoscopic TAP block
Anesthesia Type: General
Specimen / Cultures: Right colon
Estimated Blood Loss: 50 mL
Complications: None
Operative Findings: Abdominal access with Veress needle, tattoo identified in the mid ascending colon; made 5 cm Pfannenstiel and placed ports; no peritoneal disease, multiple tiny liver lesions in the right lobe, concerning for cysts; freed up
adhesions in the right lower quadrant and from the ascending colon to the transverse colon; performed medial to lateral mobilization of the right colon with high ligation of the ileocolic pedicle using the white load robotic stapler; lifted up the
transverse colon and identified the middle colic and right branch of the middle colic; previous gastrojejunostomy performed in an antecolic fashion, with the mesentery crossing the mid transverse colon just to the left of midline; therefore, I was
able to perform the right colectomy without involving the previous surgery; divided the ileum 2 cm proximal to the ileocecal valve and divided the transverse colon just to the right of midline; ligated the mesentery with the vessel sealer, including
high ligation of the right branch of the middle colic and the right colic artery; performed stapled intracorporeal isoperistaltic ileocolic anastomosis; performed tap block laparoscopically with 30 cc of 0.25% Marcaine with dexamethasone; injected
the remaining 30 cc of local around the incisions
Colon Resection
Colon Resection
Operation performed with curative intent: Yes
Tumor Location: Ascending Colon
Right Hemicolectomy: Ileocolic and Right Colic (and right branch of the middle colic)
--- NOTE | 2023-12-07 14:08 | OR.RPT ---
Operative Report
Operative Report
DATE OF OPERATION: 12/07/2023
SURGEON: Ziyad Bevrely MD
PREOPERATIVE DIAGNOSIS: Bleeding colon mass
POSTOPERATIVE DIAGNOSIS: Bleeding colon mass
OPERATION: Robotic right hemicolectomy, adhesiolysis greater than 1 hr, mesenteric angiography with ICG, laparoscopic TAP block
ASSISTANTS:
1. MAURIZIO Calles
ANESTHESIA: General
ESTIMATED BLOOD LOSS: 50 mL
UOP: 100 mL
IVF: 1.6 L
FINDINGS:
1. Tattoo identified in the mid-ascending colon; multiple tiny <5mm liver lesions noted on the surface of the right lobe of the liver, concerning for hepatic cysts, no other hepatic or peritoneal lesions noted
2. Prior duodenal switch surgery with gastrojejunostomy performed in a antecolic fashion with the mesentery draped over the mid transverse colon just to the left of midline; the exposed transverse colon was sufficient to perform an oncologic right
hemicolectomy, so the prior surgery was left alone
3. Transected 2 cm proximal to the ileocecal valve and in the mid transverse colon just proximal to the midline; staple lines well-perfused on firefly; performed high ligation of the ileocolic pedicle, right branch of the middle colic and right
colic artery
4. Performed intracorporeal isoperistaltic stapled ileocolic anastomosis
SPECIMENS:
1. Right colon
DRAINS: None
COMPLICATIONS: No immediate complications.
INDICATIONS: The patient is an 83-year-old male who was having recurrent bleeding per rectum over the last 1.5 months. Initially, he presented to [facility], received 4 units of blood and was discharged for follow-up. 2 weeks later, he
re-presented to [facility], received 2 units of blood and underwent a colonoscopy, which was complicated by poor bowel prep. Again, he was discharged for follow-up with GI. However, he again started bleeding and came to [place]. He was
admitted, found to have a Hb of 6.7 and received 2 units of blood. He underwent a colonoscopy which showed a fungating, ulcerated, 3 cm proximal ascending colon mass that was actively oozing. The mass was biopsied. He underwent CT CAP which showed
no concerns for metastatic disease. His CEA was 20.6. Therefore, I recommended surgery. The operation was discussed with the patient and patient's son in detail, including the risks, benefits and alternatives. The patient indicated to me that he
prefers his proxy medical decision maker to be his son, Jose J Mendez Jr. The risks described included, but not limited to, bleeding, infection, anastomotic leak, damage to nearby structures (i.e.- bowel, bladder, solid organ injury, ureter),
need for ostomy creation, conversion to open, incisional hernia, inability to remove the entire tumor, future recurrence or metastasis, need to revise or alter his prior duodenal switch anatomy, development of nutritional/absorptive deficiencies
postoperatively and anesthetic risks. The patient and patient's son understood and agreed to proceed.
PROCEDURE IN DETAIL: The patient was taken to the operating room and placed on the operating table in supine position. Sequential compression devices were placed bilaterally. General anesthesia was then induced and the patient was intubated without
complication. Bilateral arms were tucked. Torres catheter was placed with sterile technique. Anesthesia placed an orogastric tube. Preoperative antibiotics were given. The abdomen was shaved, prepped and draped in a sterile fashion. A marking
pen was used to kathie out the midline. A time-out was then performed verifying the correct patient, procedure, operative site, positioning, and special equipment.
At [place], using an 11 blade scalpel, an 8 mm incision was made. A Veress needle was used to obtain abdominal access. After 3 clicks, insufflation was initiated and the opening pressure was noted to be less than 8 mmHg. The abdomen was
insufflated to a pressure of 12, which the patient tolerated well. The 8 mm robotic trocar was then introduced and the robotic endoscope advanced. No injury from initial Veress placement or port placement was noted. The abdomen was explored. The
cecum and ascending colon were easily visualized, with multiple adhesions to the right lower quadrant. Additionally, the tattoo was easily identified in the mid ascending colon. There were no concerning peritoneal lesions. There were multiple
small lesions on the surface of the right hepatic lobe that were all less than 5 mm and appeared to be cysts. There were no lesions noted on the left lobe.
In a diagonal fashion from the planned Pfannenstiel incision to the Pike[place] point incision, 2 more robotic trocars were placed under direct visualization taking care to avoid injury to the epigastric vessels. An assist port was placed in the left
lateral abdomen under direct visualization as well. Then, a 5 cm Pfannenstiel incision was made with a 15 blade scalpel 2 fingerbreadths superior to the pubic symphysis. I took this down to the level of fascia with Bovie electrocautery and
hemostasis was assured. The anterior fascia was then incised with electrocautery and extended to just beyond the length of the Pfannenstiel incision on each side. Using kenrick's, the anterior fascia was grasped and elevated. The attachments to the
rectus muscle were taken down bluntly and attachments to the midline were taken down with electrocautery. This was done both superiorly and inferiorly to our incision. Then, the midline was split, first with electrocautery and then with Kellys to
spread the rectus muscle. The preperitoneal fat was and the peritoneum was grasped and elevated. The peritoneum was divided with Metzenbaum scissors and the abdomen was entered. The peritoneum was opened superiorly and inferiorly to the
extent that our incision would allow, taking care to avoid injury to the bladder. A small Alexx was placed and a port cap attached. The 12 mm robotic port was placed through the port cap. Then, the patient was placed in [id number] with slight
Trendelenburg. The robot was docked from the patient's right side. From the Pfannenstiel to Pike's point, the instruments introduced were the bipolar grasper, camera, scissors and tip up grasper.
I assessed the patient's intra-abdominal anatomy. He had a prior duodenal switch procedure including a gastrojejunostomy created in a antecolic fashion. The mesentery of the gastrojejunostomy crossed the mid transverse colon just to the left of
the midline. Therefore, the entire proximal transverse colon was easily visualized with minimal manipulation of the gastrojejunostomy. To begin, I grasped and elevated the cecum. However, this was hindered due to the RLQ adhesions. Therefore, I
performed adhesiolysis to free up the cecum, terminal ileum and right colon. I swept the small bowel towards the pelvis. Using my tip-up grasper, I retracted the transverse colon. The ileocolic pedicle was nicely exposed. A medial to lateral
mobilization was performed by first incising the peritoneal lining just below the pedicle using the robotic scissors. I elevated the pedicle anteriorly and swept the retroperitoneum down bluntly in order to identify the duodenum. Once the duodenum
was swept away from the takeoff of the ileocolic pedicle, I isolated the ileocolic pedicle circumferentially and performed a high ligation using the white load of the robotic stapler. I elected to use the stapler due to the patient's age and known
atherosclerotic disease as seen on the CT scan. The ileocolic stump was hemostatic. I continued my medial to lateral dissection up to the hepatic flexure and then below the right colon and cecum, taking care to avoid injury to the duodenum, right
kidney and right ureter.
After the right colon was completely mobilized medially, I turned my attention to the transverse colon. There was an attenuated pedicle of omentum along the proximal transverse colon, which I grasped and elevated while retracting the transverse
colon caudally. I divided the gastrocolic ligament and entered the lesser sac. This was confirmed by visualizing the posterior wall of the stomach. I carried this dissection around the hepatic flexure using a combination of blunt dissection and the
vessel sealer, taking care to avoid injury to the liver, duodenum and pancreas. Once the hepatic flexure was completely mobilized, I continued this dissection by taking down the white line of Toldt to my previous dissection of the cecum. I mobilized
the attachments of the terminal ileum and its mesentery from the RLQ and right pelvic brim, taking care to avoid injury to the right ureter. At this point, the entire cecum, right colon and hepatic flexure were nicely mobilized. I selected a point
about 2 cm proximal from the ileocecal valve and elevated this with my tip up grasper. I grasped the transected ileocolic pedicle on the specimen side and used the vessel sealer to serially ligate the mesentery up to my selected point on the
terminal ileum. I stapled and divided the terminal ileum with the 60 mm robotic stapler with a blue load.
I grasped the transverse colon and elevated this in order to expose and visualize the mesentery. I was able to identify the right branch of the middle colic. I selected a point on the transverse colon several centimeters proximal to the crossing
of the gastrojejunostomy mesentery, but distal to the right branch of the middle colic. Additionally, the transverse colon was mobile and several more centimeters of transverse colon was easily retracted from under the gastrojejunostomy mesentery,
leaving plenty of room to perform a [id number] anastomosis. At this point, I created a hole in the mesentery at the mesenteric border of the transverse colon and divided the transverse colon with a blue load of the 60 mm robotic stapler. I
serially divided the mesentery towards the terminal ileum, performing a high-ligation of the right branch of the middle colic and the right colic artery and taking care to avoid injury to the duodenum and pancreas. I placed the specimen in the
right upper quadrant. Anesthesia injected ICG and I confirmed adequate perfusion to the proximal end of the transverse colon and distal end of the terminal ileum.
I placed the terminal ileum adjacent to the transverse colon. This aligned nicely for a [id number] isoperistaltic anastomosis without any evidence of tension. The angle from the Pfannenstiel was estimated and the stapler would reach for the
anastomosis. I measured 7 cm distal from the staple line on the transverse colon and 2 cm proximal from the staple line on the terminal ileum. I created a colotomy at about 7 cm distal to the staple line on the transverse colon and a enterotomy 2
cm proximal to the staple line on the terminal ileum. I advanced the 60 mm robotic stapler with a white load through the bowel openings, ensured ideal alignment and fired. After the robotic stapler was withdrawn, no bleeding was noted from the
staple line. The common defect was then closed using a 3-0 V-Loc suture in 2 layers, starting from the superior aspect and sewing inferiorly in a running baseball fashion, and then superiorly in a running [place] fashion in order to imbricate the
first layer.
After the anastomosis was complete, the operative field was examined. There was complete hemostasis, no bowel herniating through the mesenteric defect and good perfusion to our anastomosis without any evidence of tension. The mesentery of the
gastrojejunostomy was intact and suffered no injury. The gastrojejunostomy and jejunum appeared healthy without evidence of ischemia.
The instruments were removed and the robot was undocked. The specimen was removed through the Pfannensteil incision. The specimen was evaluated on the back-table and the margins were noted to be adequate. A TAP block was performed under
laparoscopic guidance. 15mL of 0.25% Marcaine with dexamethasone was injected bilaterally. The ports were then removed under direct visualization and no bleeding was noted. The abdomen was allowed to desufflate. The Pfannenstiel incision was closed
in layers. Using an 0 Vicryl stitch, the peritoneum was closed in a running fashion. The fascia was closed with an 0 Stratafix suture. The incisions were irrigated and then injected with the remaining 30mL of local. The skin of the incisions were
closed with a 4-0 Monocryl in running subcuticular fashion and dressed with Dermabond.
At this point, the procedure was complete. The patient was awoken and extubated without complication. All needle, sponge and instrument counts were reported as correct. The patient tolerated the procedure well and was transferred to the recovery
room in stable condition with the torres in place.
DICTATED BY: Ziyad Beverly MD
[2023-12-07] MEDS: NORMOSOL-R 1000 IV (15:00)
--- NOTE | 2023-12-07 15:10 | SUR.PHASEI ---
Gold bracelet from lt wrist moved to rt wrist. Found in OR under IV dressing lt wrist. Reynaldo Macias RN.
--- NOTE | 2023-12-07 15:53 | PTCARENOTE ---
Pt transferred to [facility] post-op; all pt belongings taken to room 2101.
--- NOTE | 2023-12-07 15:56 | PTCARENOTE ---
1534: Patient arrived to 2S. Full head to toe assessment completed. 5 lap sites open to air with glue. Patient drowsy but easily arousable to voice. IVF running per order. Patient on RA with SpO2 greater than 92%. Call copeland within reach and bed
lowest position.
[2023-12-07] MEDS: TORADOL 15 MG IV ×2 (17:04→22:18)
[2023-12-08] VITALS (8 sets, daily range): BP systolic 122–146; BP diastolic 51–68; PULSE 70; O2SAT 100; BMI 25.6
[2023-12-08] MEDS: TYLENOL 1000 MG PO ×4 (00:34→17:05)
[2023-12-08] MEDS: TORADOL 15 MG IV ×3 (04:22→17:05)
[2023-12-08 06:53] LABS: % Basophils 0.1 % (0-2); % Immature Granulocytes 0.9 % (0-0.5); % Lymphocytes 7.8 % (20.5-51.1); % Monocytes 5.8 % (1.7-9.3); % Neutrophils 85.4 % (42.2-75.2); Absolute Immature Granulocytes 0.1 10^3/uL (0-0.05); Absolute Lymphocytes 0.7 10^3/uL (1.2-3.4); Absolute Monocytes 0.5 10^3/uL (0.1-0.6); Hematocrit 25.6 % (39.0-52.0); Hemoglobin 8.1 g/dL (13.0-18.0); Mean Corp Hgb Conc. 31.6 g/dL (33.0-37.0); Mean Corpuscular Hgb 27.5 pg (27.0-31.0); Mean Corpuscular Volume 86.8 fL (80.0-94.0); Mean Platelet Volume 10.7 fL (7.4-10.4); Nucleated Red Blood Cells % 0 % (-); Platelet Count 183 10^3/uL (130-400); Red Blood Cell Count 2.95 10^6/uL (4.70-6.10); Red Cell Dist. Width 16.7 % (11.5-14.5); White Blood Cell Count 9.4 10^3/uL (4.8-10.8)
[2023-12-08 07:26] LABS: Blood Urea Nitrogen 19 mg/dl (9-20); Calcium 7.7 mg/dl (8.4-10.2); Carbon Dioxide 21 mmol/L (22-30); Estimated Creatinine Clearance 31 ml/min; Potassium 4.3 mmol/L (3.5-5.1); eGFR 36.43
[2023-12-08 07:36] LABS: Chloride 108 mmol/L (98-107); Glucose 112 mg/dl (70-99); Sodium 136 mmol/L (135-145)
[2023-12-08] MEDS: OCUVITE SOFTGEL 1 CAP PO ×2 (07:53→21:05)
[2023-12-08] MEDS: NSS (PRESERVATIVE FREE) 10 ML IV ×2 (07:54→21:00)
[2023-12-08] MEDS: ENTEREG 12 MG PO (07:54)
[2023-12-08] MEDS: PROTONIX IV 40 MG IV ×2 (07:54→21:00)
[2023-12-08] MEDS: NORVASC 2.5 MG PO (07:54)
--- NOTE | 2023-12-08 08:23 | W.PN.CRS1 ---
Addendum entered and electronically signed by Ziyad Beverly MD 12/08/23 08:30:
-Cont IVF at 50
Original Note:
Today's Communication / Plan
-
As below
Assessment/Plan
-
83-year-old male with PMH of CKD and HTN who presents for rectal bleeding requiring 2 admissions at [facility] and multiple transfusions, presents to [place] with recurrent bleeding and hemoglobin of 6.2, s/p pRBC x 2. Colonoscopy done 12/02
showing a proximal ascending colon, non-obstructing, with evidence of oozing. It was biopsied and tattooed.
POD 1 robotic right colectomy
AFVSS
WBC 9.4, Hb 8.1 from 8.9, Cr 1.8 from 1.6
� Proximal ascending colon mass, concerning for cancer based on appearance and presentation, s/p resection
�Follow-up path
�CEA 20.6
-CTCAP - RUL/RML opacities, more consistent with infectious (d/w Dr. Garcia), adrenal nodule possibly adenoma, thyroid nodule, hiatal hernia, thickening of ascending colon, no other concern for mets
�Per cards, above average risk for surgery, no further work-up necessary
� Will advance to regular diet; instructed patient to go slow
� Ok for DVT ppx with Lovenox to start tonight
� Continue Cabrera, strict I/os
�Cr trended up slightly; will repeat in the p.m.; if no concern for NELSON, will remove Cabrera
� OOB, encourage I-S
� Appreciate hospitalist
Subjective Data
Subjective Data
Date of Service: December 08, 2023
No overnight events.
Denies pain.
Denies nausea/vomiting. Tolerating clears
+flatus (a couple times overnight) +BMs (1 overnight, liquid) + Cabrera
Pt is OOB.
Objective Data
-
Vital Signs
Temp Pulse Resp BP Pulse Ox
97.4 F 78 16 137/68 98
12/08/23 07:11 12/08/23 07:54 12/08/23 07:11 12/08/23 07:54 12/08/23 07:11
Intake & Output
12/07/23 12/08/23 12/09/23
06:59 06:59 06:59
Intake Total 2645 / 2645
Output Total 615 / 615
Balance 2029 / 2029
Intake:
Oral fluids 1800 / 1800
IV fluids (Total) 845 / 845
Normosol-R 1,000 ml @ 50 mls/hr
IV .Q20H HUBERT Rx#:[id number]
norm 75 / 75
Output:
Urine, Cabrera 615 / 615
Other:
Number of approximated MODERATE 2
amounts of urine
Lab Results
12/08/23 05:39
12/08/23 05:39
Physical Exam
-
General: No Acute Distress and AOx3
HEENT: Grossly Normal
Abdomen: Soft, Non Distended (Minimally to mildly distended), Tender (Appropriately tender near incisions), No Guarding and No Rebound
Neurological: No Motor Deficits
Skin: Warm and Dry
Wound: No Signs of Infection, Dressing in Place (With Dermabond) and No Skin Erythema
--- NOTE | 2023-12-08 08:46 | W.PN.HOSP.TC ---
Addendum entered and electronically signed by Tam Abreu MD 12/08/23 14:00:
I saw and evaluated the patient. I reviewed the resident�s note and agree with findings and plan as documented in the resident�s note.
Original Note:
Documented by User: Frances Limon MD, Resident 12/08/23 13:41
Today's Communication/Plan
-
s/p hemicolectomy
wound care
monitor
Likely discharge tomorrow
Assessment / Plan
Assessment / Plan
pt is an 83 year old male
Rectal bleeding-- concern for possible right sided malignancy, confirmed on colonoscopy 12/02--s/p 2 units pRBC with improvement to 9.3--serial H&H----Continue IV PPI--CT scan reviewed, no significant findings--s/p hemicolectomy good -- pass gas and
stool this morning -- change to regular diet -- monitor -- hg 8.1
Acute to subacute blood loss anemia--pt hgb 6.2 (likely chronic in nature with presumed CKD, stage 3?), compensated to some extent--iron studies show SHELBIE, pt took oral iron as outpt for 1 week then stopped--B12 and folate are adequate--after workup,
consider restarting oral iron therapy--s/p 2 units pRBC with HGB 9.0. Today 8.1
First degree AV heart block -- Sees a rate engineer every 6 months for monitoring consistent with EKG findings-- Locker Attendant contacted -- said last Echo in August had an EF of 55% and pt seen for first degree AV heart block ---Cardiology consulted
and cleared
Elevated creatinine--likely CKD stage 3---Avoid nephrotoxic drugs
Essential HTN--Continue amlodipine 2.5 mg
Adrenal Lesion--Abdominal/pelvic enhanced done at [facility] on November 17 noted 2.5 x 3 cm right adrenal lesion which does not meet CT criteria for simple adenoma--Follow up as outpatient, CT scan here consistent with [facility]
findings.
DVT proph--Sequential compression device
Code status--Full code
Anticipated Discharge: Within 24 hours
Subjective/Interval History
-
Date of Service: December 08, 2023
Pt in a good mood. Excited to eat.
Objective Data
-
Labs:
Laboratory Results
12/08/23 12/08/23
05:39 13:00
WBC 9.4
Hgb 8.1 L
Hct 25.6 L
Plt Count 183
Sodium 136 Pending
Potassium 4.3 Pending
Chloride 108 H Pending
Carbon Dioxide 21 L Pending
BUN 19 Pending
Creatinine 1.8 H Pending
Glucose 112 H Pending
Calcium 7.7 L Pending
Vital Signs:
Vital Signs
Temp Pulse Resp BP Pulse Ox
97.4 F 78 16 137/68 98
12/08/23 07:11 12/08/23 07:54 12/08/23 07:11 12/08/23 07:54 12/08/23 07:11
I&O
12/07/23 12/08/23 12/09/23
06:59 06:59 06:59
Intake Total 2645 / 2645
Output Total 615 / 615
Balance 2029 / 2029
Review of Systems
-
History Source: Patient
EENT: Reports No Symptoms Reported
Respiratory: Reports No Symptoms
Cardiac: Reports No Symptoms
Abdomen/GI: Reports No Symptoms
Genitourinary: Reports No Symptoms
Endocrine: Reports No Symptoms
Physical Exam
-
General: Well Developed, Well Nourished and No Apparent Distress
Respiratory: Clear to Auscultation
Cardiac: Regular Rhythm and S1/S2
GI: Soft and Tender (near incision site); Negative Nondistended (mildly after surgery)
Musculoskeletal: No Edema
Skin: Warm and Dry
Neuro: AO x 3
Psych: Calm

Documented by User: Tam Abreu MD 12/08/23 13:59
Assessment / Plan
Assessment / Plan
pt is an 83 year old male
Rectal bleeding-- concern for possible right sided malignancy, confirmed on colonoscopy 12/02--s/p 2 units pRBC with improvement to 9.3--serial H&H----Continue IV PPI--CT scan reviewed, no significant findings--s/p hemicolectomy -- pass gas and stool
this morning -- change to regular diet -- monitor -- hg 8.1
Acute to subacute blood loss anemia--pt hgb 6.2 (likely chronic in nature with presumed CKD, stage 3?), compensated to some extent--iron studies show SHELBIE, pt took oral iron as outpt for 1 week then stopped--B12 and folate are adequate--after workup,
consider restarting oral iron therapy--s/p 2 units pRBC with HGB 9.0. Today 8.1
First degree AV heart block -- Sees a rate engineer every 6 months for monitoring consistent with EKG findings-- Locker Attendant contacted -- said last Echo in August had an EF of 55% and pt seen for first degree AV heart block ---Cardiology consulted
and cleared
Elevated creatinine--likely CKD stage 3---Avoid nephrotoxic drugs
Essential HTN--Continue amlodipine 2.5 mg
Adrenal Lesion--Abdominal/pelvic enhanced done at [facility] on November 17 noted 2.5 x 3 cm right adrenal lesion which does not meet CT criteria for simple adenoma--Follow up as outpatient, CT scan here consistent with [facility]
findings.
DVT proph--Sequential compression device
Code status--Full code
[2023-12-08] MEDS: NORMOSOL-R 1000 IV (10:18)
[2023-12-08 13:37] LABS: Blood Urea Nitrogen 21 mg/dl (9-20); Calcium 7.8 mg/dl (8.4-10.2); Carbon Dioxide 21 mmol/L (22-30); Chloride 108 mmol/L (98-107); Estimated Creatinine Clearance 28 ml/min; Glucose 125 mg/dl (70-99); Potassium 4.1 mmol/L (3.5-5.1); Sodium 134 mmol/L (135-145)
--- NOTE | 2023-12-08 14:32 | CM ---
Advanced to regular diet. Possible torres removal prior to discharge. Therapy recommendation for HH PT/OT. [facility] referral forwarded for VN, PT/OT.
[2023-12-08] MEDS: LOVENOX 40 MG SC (17:06)
[2023-12-08] MEDS: ENTEREG PO (21:07)
[2023-12-09] VITALS (9 sets, daily range): BP systolic 132–163; BP diastolic 53–79; BMI 26.3
[2023-12-09] MEDS: TYLENOL 1000 MG PO ×5 (00:42→23:47)
[2023-12-09] MEDS: NSS (PRESERVATIVE FREE) 10 ML IV ×2 (07:46→20:00)
[2023-12-09] MEDS: ENTEREG 12 MG PO ×2 (07:47→19:59)
[2023-12-09] MEDS: OCUVITE SOFTGEL 1 CAP PO ×2 (07:47→19:59)
[2023-12-09] MEDS: NORVASC 2.5 MG PO (07:47)
[2023-12-09] MEDS: PROTONIX IV 40 MG IV ×2 (07:47→19:59)
--- NOTE | 2023-12-09 08:06 | W.PN.HOSP.TC ---
Today's Communication/Plan
-
Bladder scan, 1PRCB, repeat CBC and BMP to follow Hg and Cr
Assessment / Plan
Assessment / Plan
pt is an 83 year old male
Rectal bleeding-- concern for possible right sided malignancy, confirmed on colonoscopy 12/02--s/p 2 units pRBC with improvement to 9.3--serial H&H----Continue IV PPI--CT scan reviewed, no significant findings--s/p hemicolectomy -- pass gas and stool
yesterday -- tolerated regular diet well -- hg 7.5 -- gave 1 PRBC
Acute to subacute blood loss anemia--pt hgb 6.2 (likely chronic in nature with presumed CKD, stage 3?), compensated to some extent--iron studies show SHELBIE, pt took oral iron as outpt for 1 week then stopped--B12 and folate are adequate--after workup,
consider restarting oral iron therapy--s/p 2 units pRBC with HGB 9.0. Today 7.5 -- gave 1 PRBC -- keep one more night and check in AM
First degree AV heart block -- Sees a therapeutic radiologist every 6 months for monitoring consistent with EKG findings-- [employer] Instructor contacted -- said last Echo in August had an EF of 55% and pt seen for first degree AV heart block ---Cardiology consulted
and cleared
Elevated creatinine--likely CKD stage 3--Baseline 1.7 -- today 2.0 --pt has no issues voiding -- bladder scan -- gave 1 PRBC -- check in AM -- Avoid nephrotoxic drugs
Essential HTN--Continue amlodipine 2.5 mg
Adrenal Lesion--Abdominal/pelvic enhanced done at [facility] on November 17 noted 2.5 x 3 cm right adrenal lesion which does not meet CT criteria for simple adenoma--Follow up as outpatient, CT scan here [facility] with [facility]
findings.
DVT proph--Sequential compression device
Code status--Full code
Anticipated Discharge: Within 24 hours
Subjective/Interval History
-
Date of Service: December 09, 2023
Pt feels well and is ready to go home
Objective Data
-
Labs:
Laboratory Results
12/09/23
06:00
WBC Pending
Hgb Pending
Hct Pending
Plt Count Pending
Sodium Pending
Potassium Pending
Chloride Pending
Carbon Dioxide Pending
BUN Pending
Creatinine Pending
Glucose Pending
Calcium Pending
Vital Signs:
Vital Signs
Temp Pulse Resp BP Pulse Ox
98.3 F 81 12 143/79 100
12/09/23 07:02 12/09/23 07:47 12/09/23 07:02 12/09/23 07:47 12/09/23 07:02
I&O
12/08/23 12/09/23 12/10/23
06:59 06:59 06:59
Intake Total 2645 / 2645 2500 / 2500
Output Total 615 / 615 600 / 600
Balance 2030 / 2030 1900 / 1900
Review of Systems
-
History Source: Patient
EENT: Reports No Symptoms Reported
Respiratory: Reports No Symptoms
Cardiac: Reports No Symptoms
Abdomen/GI: Reports No Symptoms
Genitourinary: Reports No Symptoms; Denies Incontinence or Difficulty Voiding
Neuro: Reports No Symptoms
Physical Exam
-
General: Well Developed, Well Nourished and No Apparent Distress
Respiratory: Clear to Auscultation
Cardiac: Regular Rhythm and S1/S2
GI: Soft and Tender (tender at sight of incision )
Musculoskeletal: No Edema
Neuro: AO x 3
Psych: Calm
[2023-12-09 09:17] LABS: Hematocrit 23.4 % (39.0-52.0); Hemoglobin 7.5 g/dL (13.0-18.0); Mean Corp Hgb Conc. 32.1 g/dL (33.0-37.0); Mean Corpuscular Hgb 26.5 pg (27.0-31.0); Mean Corpuscular Volume 82.7 fL (80.0-94.0); Mean Platelet Volume 10.7 fL (7.4-10.4); Platelet Count 153 10^3/uL (130-400); Red Blood Cell Count 2.83 10^6/uL (4.70-6.10); Red Cell Dist. Width 17.3 % (11.5-14.5); White Blood Cell Count 6.7 10^3/uL (4.8-10.8)
--- NOTE | 2023-12-09 09:31 | W.PN.CRS1 ---
Today's Communication / Plan
-
As below
Assessment/Plan
-
83-year-old male with PMH of CKD and HTN who presents for rectal bleeding requiring 2 admissions at [facility] and multiple transfusions, presents to [place] with recurrent bleeding and hemoglobin of 6.2, s/p pRBC x 2. Colonoscopy done 12/02
showing a proximal ascending colon, non-obstructing mass, with evidence of oozing. 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
POD 2 robotic right colectomy
AFVSS
WBC 6.7, Hb 7.5, Cr 2.0 yesterday (today's pending)
� s/p robotic right colectomy POD#2
�Follow-up final path
�CEA 20.6
-CTCAP - RUL/RML opacities, more consistent with infectious (d/w Dr. Garcia), adrenal nodule possibly adenoma, thyroid nodule, hiatal hernia, thickening of ascending colon, no other concern for mets
�Per cards, above average risk for surgery, no further work-up necessary
� Continue regular diet
� Cont Lovenox - no evidence of active bleeding. Trend Hgb.
� Continue Cabrera, strict I/os
� Cr trended up slightly (follow-up today's labs). Consider nephrology consultation. Cabrera removed.
� OOB, encourage I-S
� Appreciate hospitalist
Subjective Data
Subjective Data
Date of Service: December 09, 2023
He has little to no discomfort. He is tolerating a regular diet and moving his bowels.
Objective Data
-
Vital Signs
Temp Pulse Resp BP Pulse Ox
98.3 F 81 12 143/79 100
12/09/23 07:02 12/09/23 07:47 12/09/23 07:02 12/09/23 07:47 12/09/23 07:02
Intake & Output
12/08/23 12/09/2324
06:59 06:59 06:59
Intake Total 2645 / 2645 2500 / 2500
Output Total 615 / 615 600 / 600
Balance 2030 / 2030 1900 / 1900
Intake:
Oral fluids 1800 / 1800 1320 / 1320
IV fluids (Total) 845 / 845 1170 / 1170
Normosol-R 1,000 ml @ 50 mls/hr
IV .Q20H [facility] Rx#:[id number]
norm 75 / 75
IV piggybacks
Output:
Urine, Cabrera 615 / 615 150 / 150
Urine, Voided 450 / 450
Lab Results
12/09/23 08:57
Physical Exam
-
General: No Acute Distress
Abdomen: Soft, Non Distended and Non Tender
Extremities: No Calf Tenderness
Incision: Clear, Dry, Intact
--- NOTE | 2023-12-09 11:17 | VNURNOTE ---
Home Health Liaison met with patient at beside to discuss [facility] nurse/therapy, visits, schedule and homebound status. Patient is agreeable and understands that visits at home will be 1-3 x per week to assess and teach medical management. The patient
plans to return to work in about 2 weeks. [facility] contact information provided. Patient is aware that [facility] will contact them for start of care within a few days after discharge from .
[facility] referral completed in [facility] Port.
[2023-12-09 12:02] LABS: Blood Urea Nitrogen 22 mg/dl (9-20); Calcium 7.5 mg/dl (8.4-10.2); Carbon Dioxide 25 mmol/L (22-30); Chloride 109 mmol/L (98-107); Estimated Creatinine Clearance 28 ml/min; Glucose 88 mg/dl (70-99); Potassium 4.5 mmol/L (3.5-5.1); Sodium 136 mmol/L (135-145)
--- NOTE | 2023-12-09 15:43 | W.PN.UPDATE ---
Update Note
Progress Note Update
Seen and examined by me independently in collaboration with the medical claims examiner.
Lab data data reviewed.
Addendum as below :
Status post right hemicolectomy for colonic mass. Await pathology report. Postsurgery now tolerating diet.
Acute on chronic kidney disease. Lab data from PCP shows creatinine of 1.7 before. Creatinine elevated up to 2 yesterday and remains the same today. Probably multifactorial. DC further NSAIDs. Transfuse PRBC to optimize hemoglobin and follow
bladder scans for any residual. Cabrera catheter discontinued yesterday. If no further improvement then will consider nephrology input.
Acute severe anemia-suspected secondary to GI losses on adx-transfused on admission. Postoperatively drop in H&H noted. Hemoglobin today 7.5. Will transfuse 1 unit of PRBC on follow-up. No obvious external bleeding. Hemodynamically stable.
[2023-12-09 16:36] LABS: Urine Sodium 116 mmol/L (30-90)
[2023-12-09] MEDS: HEPARIN 5000 UNITS SC ×2 (16:46→23:48)
[2023-12-10 06:00] VITALS: BMI 26.2
[2023-12-10] MEDS: TYLENOL 1000 MG PO ×2 (06:24→13:10)
[2023-12-10 07:05] VITALS: BP 169/74
--- NOTE | 2023-12-10 07:53 | W.PN.CRS1 ---
Today's Communication / Plan
-
As below
Assessment/Plan
-
83-year-old male with PMH of CKD and HTN who presents for rectal bleeding requiring 2 admissions at [facility] and multiple transfusions, presents to [place] with recurrent bleeding and hemoglobin of 6.2, s/p pRBC x 2. Colonoscopy done 12/02
showing a proximal ascending colon, non-obstructing, with evidence of oozing. It was biopsied and tattooed.
POD 1 robotic right colectomy, c/b mild NELSON; pRBC x1 on 12/08
AFVSS
Labs pending
� Proximal ascending colon mass, concerning for cancer based on appearance and presentation, s/p resection
�Follow-up path
�CEA 20.6
-CTCAP - RUL/RML opacities, more consistent with infectious (d/w Dr. Gacria), adrenal nodule possibly adenoma, thyroid nodule, hiatal hernia, thickening of ascending colon, no other concern for mets
�Per cards, above average risk for surgery, no further work-up necessary
� Continue regular diet
� Ok for DVT ppx with Lovenox to start tonight
� Continue Cabrera, strict I/os
�Cr trended up slightly associated with low urine output (0.3ml/kg/hr); per hospitalist
-if cont to trend up, would recommend urine lytes and Cr to calculate FeNa and consult nephro
� OOB, encourage I-S
� Appreciate hospitalist
Dispo- if Cr/UOP is improving, ok for d/c from CRS standpoint
Subjective Data
Subjective Data
Date of Service: December 10, 2023
No overnight events.
Denies pain.
Denies nausea/vomiting. Tolerating diet.
+flatus +BMs (loose, nonbloody) +voiding
Pt is OOB.
Objective Data
-
Vital Signs
Temp Pulse Resp BP Pulse Ox
98.2 F 71 16 141/64 96
12/09/23 23:12 12/09/23 23:12 12/09/23 23:12 12/09/23 23:12 12/09/23 23:12
Intake & Output
12/09/23 12/10/23 12/11/23
06:59 06:59 06:59
Intake Total 2500 / 2500 1410 / 1410
Output Total 600 / 600 680 / 680
Balance 1900 / 1900 730 / 730
Intake:
Oral fluids 1320 / 1320 1160 / 1160
IV fluids (Total) 1170 / 1170
IV piggybacks
Blood Product Amount Infused ( 250 / 250
mL)
Packed Rbc Leukoreduced Unit 250 / 250
[id number]
Output:
Urine, Cabrera 150 / 150
Urine, Voided 450 / 450 680 / 680
Other:
Number of approximated LARGE 4
amounts of urine
Physical Exam
-
General: No Acute Distress and AOx3
HEENT: Grossly Normal
Abdomen: Soft, Distended (Minimally distended), Non Tender, No Guarding and No Rebound
Neurological: No Motor Deficits
Skin: Warm and Dry
Wound: No Signs of Infection, Dressing in Place (With Dermabond) and No Skin Erythema
[2023-12-10] MEDS: ENTEREG 12 MG PO (08:05)
[2023-12-10] MEDS: NORVASC 2.5 MG PO (08:05)
[2023-12-10] MEDS: HEPARIN 5000 UNITS SC (08:06)
[2023-12-10] MEDS: NSS (PRESERVATIVE FREE) 10 ML IV (08:08)
[2023-12-10] MEDS: PROTONIX IV 40 MG IV (08:09)
[2023-12-10] MEDS: OCUVITE SOFTGEL 1 CAP PO (08:09)
--- NOTE | 2023-12-10 09:29 | W.PN.HOSP.TC ---
Today's Communication/Plan
-
Discharge today
Assessment / Plan
Assessment / Plan
pt is an 83 year old male
Rectal bleeding-- concern for possible right sided malignancy, confirmed on colonoscopy 12/02--s/p 2 units pRBC with improvement to 9.3--serial H&H----Continue IV PPI--CT scan reviewed, no significant findings--s/p hemicolectomy -- pass gas and stool
yesterday -- tolerated regular diet well -- hg 7.5 -- gave 1 PRBC -- today hg 8.5 -- Colorectal is okay with discharging if pt Cr is good (1.5 today) -- Discharge
Acute to subacute blood loss anemia--pt hgb 6.2 (likely chronic in nature with presumed CKD, stage 3?), compensated to some extent--iron studies show SHELBIE, pt took oral iron as outpt for 1 week then stopped--B12 and folate are adequate--after workup,
consider restarting oral iron therapy--s/p 2 units pRBC with HGB 9.0-- 12/09 7.5 -- gave 1 PRBC -- today 8.4 -- discharge
First degree AV heart block -- Sees a communications department chair every 6 months for monitoring consistent with EKG findings-- Safety And Security Officer contacted -- said last Echo in August had an EF of 55% and pt seen for first degree AV heart block ---Cardiology consulted
and cleared
Elevated creatinine--likely CKD stage 3--Baseline 1.7-- gave 1 PRBC -- -- Avoid nephrotoxic drugs -- today 1.5 -- stable for discharge
Essential HTN--Continue amlodipine 2.5 mg
Adrenal Lesion--Abdominal/pelvic enhanced done at [facility] on November 17 noted 2.5 x 3 cm right adrenal lesion which does not meet CT criteria for simple adenoma--Follow up as outpatient, CT scan here consistent with [facility]
findings.
DVT proph--Sequential compression device
Code status--Full code
Anticipated Discharge: Today
Subjective/Interval History
-
Date of Service: December 10, 2023
Objective Data
-
Labs:
Laboratory Results
12/10/23 12/10/23
06:05 09:02
WBC Cancelled Pending
Hgb Cancelled Pending
Hct Cancelled Pending
Plt Count Cancelled Pending
Sodium Cancelled Pending
Potassium Cancelled Pending
Chloride Cancelled Pending
Carbon Dioxide Cancelled Pending
BUN Cancelled Pending
Creatinine Cancelled Pending
Glucose Cancelled Pending
Calcium Cancelled Pending
Vital Signs:
Vital Signs
Temp Pulse Resp BP Pulse Ox
98.5 F 68 16 169/74 96
12/10/23 07:05 12/10/23 08:05 12/10/23 07:05 12/10/23 08:05 12/10/23 07:05
I&O
12/09/23 12/10/23 12/11/23
06:59 06:59 06:59
Intake Total 2500 / 2500 1410 / 1410
Output Total 600 / 600 680 / 680
Balance 1900 / 1900 730 / 730
Review of Systems
-
History Source: Patient
Respiratory: Reports No Symptoms
Cardiac: Reports No Symptoms
Abdomen/GI: Reports No Symptoms
Genitourinary: Reports No Symptoms
Neuro: Reports No Symptoms
Physical Exam
-
General: Well Developed, Well Nourished, No Apparent Distress and Comfortable
Cardiac: Regular Rhythm and S1/S2
GI: Soft, Nontender and Nondistended
Musculoskeletal: No Edema
Skin: Warm and Dry
Neuro: AO x 3
Psych: Calm
[2023-12-10 10:12] LABS: Hematocrit 25.3 % (39.0-52.0); Hemoglobin 8.4 g/dL (13.0-18.0); Mean Corp Hgb Conc. 33.2 g/dL (33.0-37.0); Mean Corpuscular Hgb 27.6 pg (27.0-31.0); Mean Corpuscular Volume 83.2 fL (80.0-94.0); Mean Platelet Volume 10.7 fL (7.4-10.4); Platelet Count 139 10^3/uL (130-400); Red Blood Cell Count 3.04 10^6/uL (4.70-6.10); Red Cell Dist. Width 17.4 % (11.5-14.5); White Blood Cell Count 4.6 10^3/uL (4.8-10.8)
[2023-12-10 11:49] LABS: Blood Urea Nitrogen 20 mg/dl (9-20); Calcium 7.6 mg/dl (8.4-10.2); Carbon Dioxide 17 mmol/L (22-30); Chloride 114 mmol/L (98-107); Estimated Creatinine Clearance 37 ml/min; Glucose 98 mg/dl (70-99); Sodium 137 mmol/L (135-145); eGFR 45.34
[2023-12-10 13:35] VITALS: BP 145/66
--- NOTE | 2023-12-10 14:12 | CM ---
Patient has been medically cleared for discharge to home with [facility] and PT/OT services. Patient has arranged for transport home.
--- NOTE | 2023-12-10 14:14 | W.PN.UPDATE ---
Update Note
Progress Note Update
seen and examined by me independently in collaboration with the medical office assistant instructor.
Lab data data reviewed.
Addendum as below :
Tolerating diet without any issues.
Keen to go home.
Denies any nausea vomiting. Denies any abdominal pain.
Denies any shortness of breath or chest pain.
No nausea vomiting. No fevers.
Afebrile and hemodynamically stable.
Chest clear
Abdomen benign
Alert and oriented x 3
Hemoglobin 8.4-improved after transfusion
Creatinine 1.5-improved. Baseline creatinine 1.7.
Bleeding colonic mass status post right hemicolectomy. Concern for malignancy. Biopsy report pending. Tolerating diet per surgery. Follow with surgery as an outpatient.
NELSON on chronic kidney disease-suspect prerenal including fluid loss/blood loss. Cannot rule out contributions from anemia and Toradol use. With transfusion support and holding Toradol creatinine improved in fact better than his baseline. He has
active follow-up with the sales agent.
medical stable for discharge
More than 30 minutes spent in discharge including
Final examination of the patient
Summarizing hospital stay
Instructions for continuing care to all relevant caregivers
Preparation of discharge records, prescriptions, and referral forms
Total time spent (in minutes): 35
--- NOTE | 2023-12-10 17:02 | W.DCSUMMARY ---
Discharge Summary
Discharge Data
Date of Admission: 12/01/23
Date of Discharge: 12/10/23
-
Pending Results: Yes
Additional Pending Results:
Mass biopsy
Hospital Course
Primary diagnosis:
-Rectal bleeding
-Proximal ascending colon mass status post right sided hemicolectomy
-Acute to subacute blood loss anemia
-Elevated creatinine
Secondary diagnosis:
-Essential hypertension
-First-degree AV heart block
-Adrenal lesion
Hospital course:
Jose J is an 83-year-old male who presented to the ED with rectal bleeding. He has been worked up in the past for rectal bleeding at [facility] with no results. On admission the patient had a hemoglobin of 6.2 and was given 2 units of
packed red blood cells. The patient had no complaints besides black stools. He had no diarrhea, constipation, or bright red blood in the stool, abdominal tenderness, abdominal pain, nausea, vomiting or fever. The patient was admitted for blood
transfusions and further GI workup. Colonoscopy revealed a proximal ascending colon mass and the patient was scheduled for surgery. A right hemicolectomy was performed. Status one day post hemicolectomy the patient was able to pass gas and had a
bowel movement. Day 2 post hemicolectomy hemoglobin was noted to be low at 7.5 and a creatinine elevation of 2.0. Of note patient's baseline creatinine is 1.7. Patient was given 1 unit of packed red blood cells and kept for 1 more night. The
next morning the patient's creatinine was 1.5.
Today, patient is clinically stable and ready to go home. He was sent home on his home medications and an iron supplement. Patient will follow-up with colorectal for results of mass biopsy and outpatient.
Discharge Plan
-
Patient Disposition: Home with Home Care
Discharge Diagnosis/Procedures: Rectal bleeding, proximal ascending colon mass status post right sided hemicolectomy, acute to subacute blood loss anemia
Diet: Regular
Activity: As tolerated
Driving Restrictions: Not until seen by your Dr
Bathing Restrictions: None
Other Services: VN and PT
Referrals:
Curly Cornelius DO [Family Provider] - in one week
Prescriptions:
New
ferrous sulfate 325 mg (65 mg iron) tablet
325 mg PO DAILY Qty: 30 0RF
Continued
amlodipine [Norvasc] 2.5 mg Tablet
2.5 mg PO DAILY
PreserVision AREDS 2,148 mcg-113 mg-45 mg-17.4mg Tablet
1 tab PO BID
pantoprazole 40 mg tablet,delayed release (DR/EC)
40 mg PO DAILY
Discharge Orders:
Discharge Patient (As Directed); Ordered 12/10/23
Ordered By: Frances Limon
Discharge Date and Time
Discharge Date/Time: 12/10/23 14:05
Print Language: CYMRO
== END 2023-12-10 14:05 | disposition home health service (06) | DRG 329 ==
LOC: 2 SOUTH 16:09
PROVIDERS: Internal Medicine Gastroenterology; Registered Nurse; Student in an Organized Health Care Education/Training Program; ADMITTING PHYSICIAN Internal Medicine; ATTENDING PHYSICIAN Internal Medicine; CONSULT PHYSICIAN Internal Medicine; CONSULT PHYSICIAN Surgery; EMERGENCY PHYSICIAN Emergency Medicine; FAMILY PHYSICIAN Family Medicine; OTHER PHYSICIAN Internal Medicine Cardiovascular Disease
PROC: 30233N1 Transfusion of Nonautologous Red Blood Cells into Peripheral Vein, Percutaneous Approach (ICD-10-PCS; 2023-12-01)
PROC: 0DBK8ZX Excision of Ascending Colon, Via Natural or Artificial Opening Endoscopic, Diagnostic (ICD-10-PCS; 2023-12-03)
PROC: 3E0H8GC Introduction of Other Therapeutic Substance into Lower GI, Via Natural or Artificial Opening Endoscopic (ICD-10-PCS; 2023-12-03)
PROC: 8E0W4CZ Robotic Assisted Procedure of Trunk Region, Percutaneous Endoscopic Approach (ICD-10-PCS; 2023-12-07)
PROC: 0DTF4ZZ Resection of Right Large Intestine, Percutaneous Endoscopic Approach (ICD-10-PCS; 2023-12-07)
PROC: 0DNF4ZZ Release Right Large Intestine, Percutaneous Endoscopic Approach (ICD-10-PCS; 2023-12-07)
PROC: 4A1BXSH Monitoring of Gastrointestinal Vascular Perfusion using Indocyanine Green Dye, External Approach (ICD-10-PCS; 2023-12-07)
DX: C18.2 Malignant neoplasm of ascending colon (principal); K57.31 Diverticulosis of large intestine without perforation or abscess with bleeding; D62 Acute posthemorrhagic anemia; N17.9 Acute kidney failure, unspecified; E87.20 Acidosis, unspecified; I12.9 Hypertensive chronic kidney disease with stage 1 through stage 4 chronic kidney disease, or unspecified chronic kidney disease; N18.30 Chronic kidney disease, stage 3 unspecified; D63.0 Anemia in neoplastic disease; D63.1 Anemia in chronic kidney disease; K64.0 First degree hemorrhoids; K63.5 Polyp of colon; D35.01 Benign neoplasm of right adrenal gland; I44.0 Atrioventricular block, first degree; I16.0 Hypertensive urgency; Z98.84 Bariatric surgery status; Z87.891 Personal history of nicotine dependence; Z80.9 Family history of malignant neoplasm, unspecified; Z79.899 Other long term (current) drug therapy
CPT/HCPCS: 88305; 88309; 36430; 71260; 74177; 80048; 80053; 82378; 82570; 82607; 82728; 82746; 83540; 83550; 83735; 84300; 85014; 85018; 85025; 85027; 85610; 85730; 86850; 86900; 86901; 86920; 88342; 93005; 97116; 97163; 97167; 99285; J1335; J2916; P9016; Q9967

== ENCOUNTER → 2024-07-10 11:58 | Outpatient (REF) | payer OTHER, SELFPAY | LOC: RAD 11:58 | PROVIDERS: ATTENDING PHYSICIAN Surgery; FAMILY PHYSICIAN Family Medicine | DX: C18.2 Malignant neoplasm of ascending colon (principal) | CPT/HCPCS: 71250 ==